=== PATIENT | male | born 1960 | race Caucasian/White ===

== ENCOUNTER 2016-11-27 07:58 | Emergency (ER) | payer OTHER ==
--- NOTE | 2016-11-27 09:14 | EDM.PDOC ---
[id number] Complaint: RT SIDE WEAKNESS/DELUSIONAL Time Seen by Provider: 11/27/16 08:30 Source of Information: Reports: Patient, Family History Limitations: Reports: No Limitations - History of Present Illness INITIAL COMMENTS - FREE TEXT/NARRATIVE: 56-year-old male developed fairly sudden onset of right-sided weakness, discoordination and emotional irritability yesterday, as the day went on it seemed to improve. No headache, no visual complaints. This morning when he woke up it seemed that symptoms had worsened again so his convinced him to come in and be checked. He is having a slight hindrance with walking as he feels his right leg is heavy and he has to push it through. His also thinks he's trying hard her doctor talk this morning and may have a slight slurred speech but subtle. Onset: Sudden (Roughly 24 hours ago) Severity: Moderate Associated Symptoms: Reports: No Other Symptoms. Denies: Fever/Chills, Headaches - Related Data Allergies Allergy/AdvReac Type Severity Reaction Status Date / Time No Known Allergies Allergy Verified 08/05/14 01:13 Home Meds: Home Meds Lisinopril [Zestril] 10 mg PO DAILY 11/27/16 [History] Ranitidine HCl [Ranitidine] 150 mg PO BID 11/27/16 [History] metFORMIN [Glucophage] 500 mg PO BIDMEALS 11/27/16 [History] Past Medical History HEENT History: Reports: Other (See Below) Other HEENT History: deviated septum Cardiovascular History: Reports: Hypertension Genitourinary History: Reports: Renal Calculus Endocrine/Metabolic History: Reports: Diabetes, Type II Oncologic (Cancer) History: Reports: Basal Cell Carcinoma - Infectious Disease History Infectious Disease History: Reports: Chicken Pox, Measles, Mumps - Past Surgical History GI Surgical History: Reports: Appendectomy Male Surgical History: Reports: Lithotripsy (ESWL), Ureteral Stent Musculoskeletal Surgical History: Reports: Arthroscopic Knee, Shoulder Surgery, Other (See Below) Other Musculoskeletal Surgeries/Procedures:: ankle surgery Social & Family History - Tobacco Use Smoking Status *Q: Current Every Day Smoker Years of Tobacco use: 40 Packs/Tins Daily: 1 - Caffeine Use Caffeine Use: Reports: Coffee - Alcohol Use Days Per Week of Alcohol Use: 0 - Recreational Drug Use Recreational Drug Use: No ED ROS GENERAL - Review of Systems Review Of Systems: See Below Constitutional: Denies: Fever, Chills, Malaise HEENT: Denies: Vision Change Respiratory: Denies: Shortness of Breath Cardiovascular: Denies: Chest Pain, Palpitations GI/Abdominal: Denies: Nausea, Vomiting : Reports: No Symptoms Musculoskeletal: Reports: No Symptoms Skin: Reports: No Symptoms Neurological: Reports: Confusion, Trouble Speaking, Difficulty Walking, Weakness , Gait Disturbance. Denies: Headache ED EXAM, NEURO - Physical Exam Exam: See Below Exam Limited By: No Limitations General Appearance: Alert, No Apparent Distress Eye Exam: Bilateral Eye: EOMI, PERRL Neck: No: Carotid Bruit Respiratory/Chest: No Respiratory Distress, Lungs Clear Cardiovascular: Regular Rate, Rhythm GI/Abdominal: Soft, Non-Tender Neurological: Alert, Normal Mood/Affect, Difficulty Walking (Slight difficulty walking with right leg weakness), Other (Some very minimal but reproducible grasp strength weakness of the right hand and dorsiflexion strength of the right foot) Course - Vital Signs Last Recorded V/S: Last Vital Signs Temp 97.0 F 11/27/16 08:14 Pulse 83 11/27/16 10:11 Resp 15 11/27/16 08:14 BP 144/105 H 11/27/16 10:11 Pulse Ox 93 L 11/27/16 09:01 - Orders/Labs/Meds Orders: Active Orders 24 hr Category Date Time Status Head wo Cont [CT] Stat Exams 11/27/16 08:34 Taken Labs: Laboratory Tests 11/27/16 11/27/16 Range/Units 08:34 08:34 WBC 12.4 H (4.5-11.0) K/uL RBC 5.34 (4.30-5.90) M/uL Hgb 16.1 H (12.0-15.0) g/dL Hct 46.6 (40.0-54.0) % MCV 87 (80-98) fL MCH 30 (27-31) pg MCHC 35 (32-36) % Plt Count 235 (150-400) K/uL Neut % (Auto) 71 H (36-66) % Lymph % (Auto) 21 L (24-44) % [place] % (Auto) 7 H (2-6) % Eos % (Auto) 1 L (2-4) % Baso % (Auto) 1 (0-1) % Sodium 138 L (140-148) mmol/L Potassium 4.2 (3.6-5.2) mmol/L Chloride 103 (100-108) mmol/L Carbon Dioxide 29 (21-32) mmol/L Anion Gap 10.2 (5.0-14.0) mmol/L BUN 15 (7-18) mg/dL Creatinine 1.4 H (0.8-1.3) mg/dL Est Cr Clr Drug Dosing 71.47 mL/min Estimated GFR (MDRD) 52 L (>60) Glucose 171 H (74-106) mg/dL Calcium 8.7 (8.5-10.1) mg/dL Total Bilirubin 0.5 (0.2-1.0) mg/dL AST 29 (15-37) U/L ALT 55 (12-78) U/L Alkaline Phosphatase 87 (46-116) U/L Total Protein 7.2 (6.4-8.2) g/dL Albumin 3.5 (3.4-5.0) g/dL Globulin 3.7 H (2.3-3.5) g/dL Albumin/Globulin Ratio 1.0 L (1.2-2.2) Meds: Medications Discontinued Medications Generic Name Dose Route Start Last Admin Trade Name Leyla PRN Reason Stop Dose Admin Aspirin 324 mg 11/27/16 10:05 11/27/16 10:12 Aspirin PO 11/27/16 10:06 324 mg ONETIME ONE Administration - Re-Assessments/Exams Free Text/Narrative Re-Assessment/Exam: 11/27/16 10:05 Labs revealed a slightly elevated glucose, otherwise reassuring. CT the head was negative for acute findings. His symptoms didn't completely resolve, so consultation with neurology in [place] was obtained and it was recommended the patient be evaluated. He was given 4 baby aspirin chewables, and discharged to the care of his as he refused ambulance transfer. They're going to [place] directly to the [facility] emergency room for evaluation. Departure - Departure Time of Disposition: 10:18 Disposition: Home, Self-Care 01 Condition: Good Clinical Impression: Weakness of right side of body Cerebrovascular accident (CVA) Qualifiers: CVA mechanism: unspecified Qualified Code(s): I63.9 - Cerebral infarction, unspecified - Discharge Information Instructions: Stroke Prevention, Weakness Referrals: Wily Gomez MD [Primary Care Provider] - Forms: ED Department Discharge Care Plan Goals: Please go directly to [facility] in [place], they will admit you through the emergency room and you will get a neurology evaluation. - My Orders Last 24 Hours: My Active Orders 11/27/16 08:34 Head wo Cont [CT] Stat - Assessment/Plan Last 24 Hours: My Active Orders 11/27/16 08:34 Head wo Cont [CT] Stat
[2016-11-27] MEDS ORDERED: Aspirin 81 MG Tab.Chew PO ONE (10:05)
[2016-11-27 10:16] VITALS: BP 144/105
== END 2016-11-27 10:15 | disposition home or self-care (01) ==
LOC: JP.ED 07:58
DX: I63.9 Cerebral infarction, unspecified (principal); G81.91 Hemiplegia, unspecified affecting right dominant side; I10 Essential (primary) hypertension; E11.9 Type 2 diabetes mellitus without complications; F17.210 Nicotine dependence, cigarettes, uncomplicated; Z79.899 Other long term (current) drug therapy; Z79.84 Long term (current) use of oral hypoglycemic drugs; Z85.828 Personal history of other malignant neoplasm of skin; Z90.49 Acquired absence of other specified parts of digestive tract; Z98.890 Other specified postprocedural states
CPT/HCPCS: 36415; 70450; 80053; 85025; 99285; A9270

== ENCOUNTER 2017-02-27 05:30 | Inpatient (IN) | payer OTHER ==
[2017-02-27] MEDS ORDERED: Acetaminophen 500 MG Tab PO ONE ×2 (05:37→10:41)
[2017-02-27] MEDS ORDERED: Celecoxib 200 MG Cap PO ONE (05:37)
[2017-02-27] MEDS ORDERED: Gabapentin 300 MG Cap PO ONE (05:38)
[2017-02-27] MEDS ORDERED: Scopolamine 1.5 MG Transdermal Patch TOP ONE (05:39)
[2017-02-27] MEDS ORDERED: Dextrose 5%-Lactated Ringers 1,000 ML IV SCH ×2 (05:45→11:45)
[2017-02-27] MEDS ORDERED: cefOXitin 2 GM Vial ONE (06:52)
[2017-02-27] MEDS ORDERED: fentaNYL 250 MCG/5 ML SDV ONE (06:59)
[2017-02-27] MEDS ORDERED: Midazolam 1 MG/ML 2 ML SDV ONE (06:59)
[2017-02-27] MEDS ORDERED: Succinylcholine 200 MG/10 ML MDV ONE (07:00)
[2017-02-27] MEDS ORDERED: Ondansetron 4 MG/2 ML SDV ONE (07:00)
[2017-02-27] MEDS ORDERED: Rocuronium 50 MG/5 ML Vial ONE ×2 (07:00→08:21)
[2017-02-27] MEDS ORDERED: Neostigmine Methylsulfate 1 MG/ML 5 ML Syringe ONE (07:00)
[2017-02-27] MEDS ORDERED: Dexamethasone 4 MG/ML SDV ONE (07:00)
[2017-02-27] MEDS ORDERED: Propofol 200 MG/20 ML SDV ONE (07:00)
[2017-02-27] MEDS ORDERED: Glycopyrrolate 0.2 MG/ML 5 ML MDV ONE (07:00)
[2017-02-27] MEDS ORDERED: Lidocaine 0.4%/D5W 2 GM/500 ML BAG IV SCH (07:30)
[2017-02-27] MEDS ORDERED: cefOXitin 2 GM in Sodium Chloride 0.9% 50 ML IV ONE (07:30)
[2017-02-27] MEDS ORDERED: Ketamine 500 MG/5 ML MDV IV ONE (07:30)
[2017-02-27] MEDS ORDERED: Lidocaine 2% 100 MG/5 ML Syringe IVPUSH ONE (07:30)
[2017-02-27] MEDS ORDERED: Ropivacaine 60 ML, Dexamethasone 8 MG, EPINEPHrine 0.4 MG, Sodium Chloride 0.9% 17.6 ML NERVRT ONE ×4 (07:30)
[2017-02-27] MEDS ORDERED: ePHEDrine 50 MG/ML SDV ONE (07:56)
[2017-02-27] MEDS ORDERED: Labetalol 20 MG/4 ML Syringe IVPUSH ONE (09:46)
[2017-02-27] MEDS ORDERED: fentaNYL 100 MCG/2 ML SDV IVPUSH ONE (10:10)
[2017-02-27] MEDS ORDERED: hydrOXYzine HCl 100 MG/2 ML SDV IM PRN (11:17)
[2017-02-27] MEDS: Labetalol 20 MG/4 ML Syringe IVPUSH PRN ×2 (11:45→16:04)
[2017-02-27] MEDS: Lidocaine 0.4%/D5W 2 GM/500 ML BAG IV SCH (11:49)
[2017-02-27] MEDS ORDERED: Pantoprazole 40 MG Vial IVPUSH SCH (12:00)
[2017-02-27] MEDS ORDERED: Glucagon,Human Recombinant 1 MG Vial IM PRN (12:00)
[2017-02-27] MEDS ORDERED: diphenhydrAMINE 50 MG/ML SDV IVPUSH PRN (12:00)
[2017-02-27] MEDS ORDERED: Ondansetron 4 MG/2 ML SDV IVPUSH PRN (12:00)
[2017-02-27] MEDS ORDERED: 50% Dextrose in Water 50 ML Syringe IVPUSH PRN (12:00)
[2017-02-27] MEDS: cefOXitin 2 GM in Sodium Chloride 0.9% 50 ML IV SCH ×3 (12:08→23:23)
[2017-02-27] MEDS: Insulin Aspart 100 Units/ML 3 ML Pen SUBCUT PRN ×3 (12:09→21:14)
[2017-02-27] MEDS ORDERED: hydrOXYzine HCl 100 MG/2 ML SDV IM ONE (12:30)
[2017-02-27] MEDS ORDERED: Meperidine PF 100 MG/ML Syringe IM ONE (12:30)
[2017-02-27] MEDS: Acetaminophen Soln 650 MG/20.3 ML UD Cup PO SCH ×2 (13:58→20:15)
[2017-02-27] MEDS: Gabapentin 250 MG/5 ML Solution ML 470 ML Bottle PO SCH ×2 (13:58→20:23)
[2017-02-27] MEDS ORDERED: MVI, Adult with Vitamin K 10 ML, Thiamine 200 MG, Chromium/Copper/Mang/Selen/Zn 1 ML in... IV SCH ×4 (16:00)
[2017-02-27] MEDS: Heparin Sodium 5,000 Units/ML Vial SUBCUT SCH (16:12)
[2017-02-28] MEDS: Heparin Sodium 5,000 Units/ML Vial SUBCUT SCH ×3 (00:23→15:31)
[2017-02-28] MEDS: Lidocaine 0.4%/D5W 2 GM/500 ML BAG IV SCH (01:42)
[2017-02-28] MEDS: Acetaminophen Soln 650 MG/20.3 ML UD Cup PO SCH ×4 (01:43→22:13)
[2017-02-28] MEDS ORDERED: Iohexol 647 MG/ML 50 ML SDV PO STA (04:10)
[2017-02-28] MEDS: Insulin Aspart 100 Units/ML 3 ML Pen SUBCUT PRN (05:25)
[2017-02-28] MEDS: cefOXitin 2 GM in Sodium Chloride 0.9% 50 ML IV SCH (05:27)
[2017-02-28] MEDS: Celecoxib 200 MG Cap PO SCH (09:24)
[2017-02-28] MEDS: Aspirin 325 MG Tab.EC PO SCH (09:27)
[2017-02-28] MEDS: Lactated Ringers 1,000 ML IV SCH (09:31)
[2017-02-28] MEDS: Gabapentin 250 MG/5 ML Solution ML 470 ML Bottle PO SCH (09:44)
[2017-02-28] MEDS: SCOPOLAMINE PATCH CHECK TOP SCH (09:45)
[2017-02-28] MEDS: traMADol 50 MG Tab PO SCH ×3 (10:59→22:13)
[2017-02-28] MEDS: Lansoprazole 30 MG Orally Disintegrating Tab.CR PO SCH (11:26)
[2017-02-28] MEDS: metFORMIN 500 MG Tab PO SCH ×2 (12:31→17:23)
[2017-02-28] MEDS ORDERED: Insulin Aspart 100 Units/ML 3 ML Pen SUBCUT ONE (12:45)
[2017-02-28] MEDS ORDERED: MVI, Adult with Vitamin K 10 ML, Thiamine 200 MG, Chromium/Copper/Mang/Selen/Zn 1 ML in... IV SCH ×4 (16:00)
[2017-03-01] MEDS: Heparin Sodium 5,000 Units/ML Vial SUBCUT SCH ×4 (01:26→23:45)
[2017-03-01] MEDS: Acetaminophen Soln 650 MG/20.3 ML UD Cup PO SCH ×4 (01:26→20:07)
[2017-03-01] MEDS: Lactated Ringers 1,000 ML IV SCH (01:26)
[2017-03-01] MEDS: traMADol 50 MG Tab PO SCH ×4 (05:06→23:45)
[2017-03-01] MEDS: Metoclopramide 10 MG/2 ML SDV IVPUSH PRN ×3 (07:13→20:08)
[2017-03-01] MEDS ORDERED: Ondansetron 4 MG Tab.DIS PO PRN (07:49)
[2017-03-01] MEDS: Celecoxib 200 MG Cap PO SCH (08:25)
--- NOTE | 2017-03-01 08:43 | CR ---
UGI wo KUB HISTORY: eval RNY GB FINDINGS: After administration of oral contrast, upright views were obtained. Post operative changes gastric bypass. Surgical drains in place. No evidence for leak. Contrast passes freely into proximal small bowel loops. IMPRESSION: No evidence for leak or obstruction.
--- NOTE | 2017-03-01 08:50 | PN ---
DATE OF SERVICE: 03/01/2017 SUBJECTIVE: Tony is postop day 2. Blood sugars have been 151 and 170. He is on the metformin. He did have his upper GI this morning and it was negative. He did have an increased amount of nausea. Vital signs otherwise have been stable. Oral intake was 1810. REVIEW OF SYSTEMS: Remainder of review of systems is negative for any pertinent positives and negatives. OBJECTIVE: GENERAL: Tony Mclaughlin is a 57-year-old male. VITAL SIGNS: TPR is 98.1, 110, 20, blood pressure 155/95. HEENT: Negative. NECK: Supple. HEART: Regular rate and rhythm. LUNGS: Clear. ABDOMEN: Dressings dry and intact. Abdominal binder is on. EXTREMITIES: Without peripheral edema. ASSESSMENT: Laparoscopic Robyn-en-Y gastric bypass surgery, liver biopsy, repair of diaphragmatic hernia, excision of mediastinal lipoma and peritoneal nodule for morbid obesity, hepatomegaly, diaphragmatic hernia, mediastinal lipoma, and peritoneal nodule. Date of surgery is 02/27/2017, Say Whitehead M.D. PLAN: 1. Three med cups per hour, record at bedside. 2. Dressing off. 3. May shower. 4. Zofran ODT 4 mg p.o. q.4 hours p.r.n. nausea. 5. Convert IV to saline lock if oral intake adequate. 6. DC metformin. 7. Good pulmonary toilet. 8. We will evaluate p.r.n. or in a.m. Qing Hale PA-C /[id number]
[2017-03-01] MEDS ORDERED: Cyanocobalamin (Vitamin B12) 1,000 MCG/ML SDV IM ONE (09:00)
[2017-03-01] MEDS: SCOPOLAMINE PATCH CHECK TOP SCH (09:47)
[2017-03-01] MEDS: Aspirin 325 MG Tab.EC PO SCH (09:47)
[2017-03-01] MEDS: Lansoprazole 30 MG Orally Disintegrating Tab.CR PO SCH (11:52)
--- NOTE | 2017-03-01 16:17 | OR ---
DATE OF PROCEDURE: 02/27/2017 PREOPERATIVE DIAGNOSIS: Morbid obesity. POSTOPERATIVE DIAGNOSES: 1. Morbid obesity. 2. Marked hepatomegaly. 3. Paraesophageal diaphragmatic hernia associated with mediastinal lipoma. 4. Peritoneal nodule on anterior abdominal wall. OPERATIVE PROCEDURES: 1. Laparoscopic Robyn-en-Y gastric bypass with long-limb gastroenterostomy (65224). 2. Urban-Cut needle liver biopsy (03567). 3. Repair of paraesophageal diaphragmatic hernia (19880). 4. Excision of mediastinal lipoma (37817). 5. Excision of peritoneal nodule on anterior abdominal wall (79810). ANESTHESIA: General. MANUFACTURING SPECIALIST: BETTY Daley. INDICATIONS FOR PROCEDURE: This is a 57-year-old male presenting with longstanding morbid obesity and increasingly significant comorbidities. After preoperative evaluation and discussion, he wished to proceed with a gastric bypass procedure. Potential risks of the procedure including bleeding, infection, leaks from various GI tract closures, problems with bowel obstruction over time, as well as the possibility of cardiopulmonary, septic, or hemorrhagic complications leading to were all discussed, and the patient wishes to proceed. DETAILS OF PROCEDURE: The patient was taken to the operating room and placed in a supine position. After general endotracheal anesthesia was induced, he was placed in a lithotomy position. Using ultrasound surveillance, bilateral transversus abdominis plane blocks were placed in the subcostal location using the standard solution. Following this, the abdomen was prepped and draped. 15 cm inferior and 5 cm left of xiphoid process, transverse incision was made and the peritoneal cavity entered under direct vision with an Optiview trocar and inflated to 15 mmHg pressure of CO2. Laparoscope was then reinserted. No underlying trocar insertion site injuries were seen. Following this, 5 additional trocars were placed across the upper and midabdomen and general exploration was undertaken. The patient was noted to have marked hepatomegaly with the liver being roughly 2 to 3 times normal, grossly fatty infiltrated. A Urban-Cut needle biopsy was obtained from left lobe of the liver. Minimal bleeding from the biopsy site was controlled with electrocautery. Additionally, there was a small white nodule on the anterior abdominal wall just to the left of the falciform ligament. This was excised and sent as a separate specimen for pathologic evaluation. There were no other similar nodules noted within the abdomen. At this point, the omentum was divided in the midline up to the level of the transverse colon. This allowed identification of the small bowel to the ligament of Treitz. Small bowel was then traced out 200 cm distal to that point, where it was divided transversely with a GLORIA stapler. Small bowel was then traced out an additional 200 cm, where the side-to- side enteroenterostomy was accomplished with an internal firing of the Endo-GLORIA 60-mm stapler. Common opening was then closed transversely with the same stapler, angles anastomosed, and mesenteric defect was approximated with some 0 Ethibond stitch along with 4 mL of fibrin sealant. The divided end of the Robyn limb was then from the mesentery for a few centimeters, which allowed an antecolic position of the Robyn limb up to the level of the gastroesophageal junction without tension. The liver was retracted anteriorly. The patient was noted to have a moderate-sized paraesophageal diaphragmatic hernia. This was reduced and the peritoneum overlying divided and reflected downward. During the course of the dissection, mediastinal lipoma was encountered, and this was excised in 2 separate pieces. An anterior repair of the diaphragmatic hernia was then accomplished with a series of 0 Ethibond sutures reinforced with PTFE pledgets. The gastrointestinal balloon catheter was then inflated to 15 mL and pulled up snugly against the EG junction, gastric wall apex balloon was then marked with electrocautery. Balloon catheter was deflated and pulled up in the esophagus. The lesser omental tissue adjacent to the gastric cardia was then incised allowing dissection behind the stomach at that level. The pouch formation was initiated with a transverse firing of the GLORIA stapler at the level of the cauterized sherie in the gastric cardia. We then continued up and through the angle of His with some additional GLORIA stapler firings. Upon completion of the pouch, both staple lines were noted to be intact. The anvil of a 25-mm EEA stapler was then attached to [place] sump type tube. The latter was brought down through the mouth and taken out through a small opening in the gastric pouch, and the anvil likewise was pulled down to within the gastric pouch. The divided end of the Robyn limb was then opened and the main body of the EEA stapler passed several centimeters in the lumen of the small bowel, brought up the anvil and united with it, thus creating the gastrojejunostomy. Upon removal of the stapler, double donuts of mucosa were noted within it. Small bowel was closed off with a vascular staple line. Gastrojejunostomy was reinforced with some 3-0 Vicryl seromuscular stitch along with some fibrin sealant. Leak test was accomplished with injection of 120 mL of air in the gastric pouch while it submerged in a cefoxitin-containing saline solution. No problems were noted. One Hermann- Bush drain was then placed to the left lateral trocar site and placed up adjacent to the gastrojejunostomy and from there into the splenic fossa. The trocars were then sequentially removed. The peritoneal cavity was deflated. Incision was closed with some 4-0 Vicryl skin stitch, which was also used to fix the drain. The patient was taken to the recovery room in a satisfactory condition. Physician assistant manager of operations, Qing Hale, played an essential role in assisting in this case, helping to retract structures as needed, position the patient as well as suturing and cutting sutures when indicated. Her presence improved the patient safety and decreased the operative time. Say Whitehead MD /[id number]
[2017-03-02] MEDS: Acetaminophen Soln 650 MG/20.3 ML UD Cup PO SCH ×2 (02:50→07:41)
[2017-03-02] MEDS: traMADol 50 MG Tab PO SCH ×3 (02:54→07:40)
[2017-03-02 07:32] VITALS: BP 138/81
[2017-03-02] MEDS: Celecoxib 200 MG Cap PO SCH (07:41)
--- NOTE | 2017-03-02 08:44 | PN ---
DATE OF SERVICE: 02/28/2017 The patient has been afebrile with stable vital signs. When he did sit up, trying to get the upper GI, he did develop orthostatic hypotension. Otherwise, urine output is good, and there is no evidence of him being dry. Blood pressures are good when he is in a supine or semi-sitting position. We will work on getting him gradually up during the day. From the diabetes, he may have some autonomic dysfunction. Otherwise, we will try to get the upper GI a little bit later, but I think we can continue with the advancement of the diet and, otherwise, maximize activity and work with pulmonary toilet. His blood sugars are running in the mid 200s. I think, rather than start any medications in terms of controlling the diabetic issue, we will switch him to plain LR at 100 mL an hour, and I think we will see the blood sugars come down from that point fairly well. Say Whitehead MD /[id number]
--- NOTE | 2017-03-02 09:23 | DISCH ---
ADMISSION DIAGNOSES: Morbid obesity, BMI 38.9; obstructive sleep apnea; hypertension; type 2 diabetes; and history of cerebrovascular accident, radha. DISCHARGE DIAGNOSES: Laparoscopic Robyn-en-Y gastric bypass surgery with long limb gastroenterostomy, Urban-Cut needle liver biopsy, repair of paraesophageal diaphragmatic hernia, excision of mediastinal lipoma, and excision of peritoneal nodule on anterior abdominal wall for morbid obesity, marked hepatomegaly, paraesophageal diaphragmatic hernia associated with mediastinal lipoma, peritoneal nodule on anterior abdominal wall. Date of surgery, 02/27/2017, Say Whitehead MD. HISTORY: Nilton Mclaughlin is a 57-year-old male with longstanding history of morbid obesity and increasing comorbidities. After preoperative evaluation and discussion of the possible risks and possible complications, he wished to proceed with surgical procedure. HOSPITAL COURSE: Nilton had his surgery on 02/27/2017. He had no operative complications. On postop day #1, he was unable to have his upper GI. He was not feeling well. He was started on a step 1 gastric bypass diet, progressed to step-2 gastric bypass diet without cereal. On postop day #2, he did have his upper GI and it was normal. Blood sugars were regulated and monitored. He will be going home with no blood sugar coverage. Over the past 24 hours, his blood sugars were 143, 168, 141, and 147. Vital signs have been stable. He has been afebrile. Activity has been good with encouragement. Oral intake adequate between 950 and 1400. He did receive dietary instructions. He is able to be discharged to home on postop day #3. PHYSICAL EXAMINATION: GENERAL: Tony Mclaughlin is a 57-year-old male, alert, oriented. VITAL SIGNS: TPR 98.5, 107, 16, blood pressure 138/81. HEENT: Negative. NECK: Supple. HEART: Regular rate and rhythm. LUNGS: Clear. ABDOMEN: 4x4 over SHAR drain site. Sutures look good. Abdominal binder is on. EXTREMITIES: Without peripheral edema. DISPOSITION: Discharged to home. CONDITION: Stable and improving. DISCHARGE MEDICATIONS: Home medications: Tylenol 650 mg p.o. q.6 hours, liquid 1200 mL; Zofran ODT 4 mg p.o. q.4 hours p.r.n. nausea; tramadol 100 mg q.6 hours p.r.n. pain. He is to resume his home medications; aspirin 325 mg daily, lisinopril 20 mg oral daily, ranitidine 150 mg twice a day, Lipitor 40 mg at bedtime. FOLLOWUP: With Qing Hale PA-C, 03/10/2017 at 11:00 a.m. DIET AFTER DISCHARGE: Step-2 gastric bypass diet with no cereal. Drink 8 to 10 glasses of water a day. ACTIVITY AFTER DISCHARGE: No lifting greater than 10 pounds for 2 weeks[address] Driving, do not drive for 1 week or while on pain medication. Shower/bathing, may shower. Notify provider if any fever, nausea, or vomiting. Keep site clean and dry. Special instruction, use incentive spirometer 10 times every hour while awake. Check blood sugars in the morning fasting and at bedtime, bring results to clinic appointment.
== END 2017-03-02 09:45 | disposition home or self-care (01) | DRG 621 ==
LOC: JP.SDS 05:30 → JP.MS 05:30 → JP.2SS 07:40 → EDSTATUS 13:30
PROVIDERS: ADMIT Surgery; ATTEND Surgery
PROC: 0D164ZA Bypass Stomach to Jejunum, Percutaneous Endoscopic Approach (ICD-10-PCS; principal; 2017-02-27)
PROC: 0DBW4ZZ Excision of Peritoneum, Percutaneous Endoscopic Approach (ICD-10-PCS; 2017-02-27)
PROC: 0FB24ZX Excision of Left Lobe Liver, Percutaneous Endoscopic Approach, Diagnostic (ICD-10-PCS; 2017-02-27)
PROC: 0BQT4ZZ Repair Diaphragm, Percutaneous Endoscopic Approach (ICD-10-PCS; 2017-02-27)
PROC: 3E0T3BZ Introduction of Anesthetic Agent into Peripheral Nerves and Plexi, Percutaneous Approach (ICD-10-PCS; 2017-02-27)
PROC: 0WBC4ZX Excision of Mediastinum, Percutaneous Endoscopic Approach, Diagnostic (ICD-10-PCS; 2017-02-27)
DX: E66.01 Morbid (severe) obesity due to excess calories (principal); Z68.39 Body mass index [BMI] 39.0-39.9, adult; R16.0 Hepatomegaly, not elsewhere classified; K76.0 Fatty (change of) liver, not elsewhere classified; K44.9 Diaphragmatic hernia without obstruction or gangrene; D17.4 Benign lipomatous neoplasm of intrathoracic organs; I10 Essential (primary) hypertension; E11.9 Type 2 diabetes mellitus without complications; Z86.73 Personal history of transient ischemic attack (TIA), and cerebral infarction without residual deficits; E78.5 Hyperlipidemia, unspecified; G47.33 Obstructive sleep apnea (adult) (pediatric); Z87.891 Personal history of nicotine dependence; K66.8 Other specified disorders of peritoneum; Z79.84 Long term (current) use of oral hypoglycemic drugs; Z79.82 Long term (current) use of aspirin
CPT/HCPCS: 36415; 74240; 74240-26; 82962; 83036; 86850; 86900; 86901; 88304; 88305; 88307; 88313; A9270-GY; C9113; J0171; J0330; J0694; J1100; J1644; J2001; J2175; J2250; J2405; J2704; J2710; J2765; J2795; J3010; J3410; J3411; J3420; J7030; J7040; J7042; J7050; J7120; Q9967

== ENCOUNTER 2017-09-05 20:08 | Inpatient (IN) | payer OTHER ==
[2017-09-05] MEDS ORDERED: Sodium Chloride 0.9% 1,000 ML IV SCH (20:45)
[2017-09-05] MEDS ORDERED: fentaNYL 100 MCG/2 ML SDV IVPUSH PRN ×2 (21:05→22:49)
[2017-09-05] MEDS ORDERED: Iopamidol 612 MG/ML 100 ML Bottle IV SCH (22:00)
[2017-09-05] MEDS ORDERED: Sodium Chloride 0.9% 80 ML IV SCH (22:00)
--- NOTE | 2017-09-05 22:16 | EDM.PDOC ---
ED HPI GENERAL MEDICAL PROBLEM - General Chief Complaint: Abdominal Pain Stated Complaint: SEVERE ABD PAIN Time Seen by Provider: 09/05/17 20:30 Source of Information: Reports: Patient, Family History Limitations: Reports: No Limitations - History of Present Illness INITIAL COMMENTS - FREE TEXT/NARRATIVE: 57-year-old male, status post Robyn-en-Y, has been having right upper quadrant pain especially after eating for the last week and a half. It's becoming more persistent and intense. Bowels are moving, no fevers or chills. A workup in the emergency room in another state was negative, a CT was pending but they had to leave. He was seen in the clinic a few days ago in a gallbladder ultrasound was "normal". He has an appointment with Dr. Whitehead tomorrow but the pain was too bothersome tonight so he came into the emergency room. Onset: Gradual (Over the past 2 weeks) Location: Reports: Abdomen Quality: Reports: Ache, Stabbing Severity: Moderate Worsens with: Reports: Eating Associated Symptoms: Denies: Fever/Chills, Nausea/Vomiting, Shortness of Breath Abdominal Pain Score (Numeric/FACES): 4 - Related Data Allergies Allergy/AdvReac Type Severity Reaction Status Date / Time No Known Allergies Allergy Verified 09/05/17 20:50 Home Meds: Home Meds Lisinopril [Zestril] 20 mg PO DAILY 11/27/16 [History] Past Medical History HEENT History: Reports: Other (See Below) Other HEENT History: deviated septum Cardiovascular History: Reports: High Cholesterol, Hypertension Respiratory History: Reports: Sleep Apnea Gastrointestinal History: Reports: None Genitourinary History: Reports: Renal Calculus Musculoskeletal History: Reports: Arthritis Neurological History: Reports: TIA Other Neuro History: 11/2016 Endocrine/Metabolic History: Reports: Diabetes, Type II, Obesity/BMI 30+ Hematologic History: Reports: Iron Deficiency Oncologic (Cancer) History: Reports: Basal Cell Carcinoma - Infectious Disease History Infectious Disease History: Reports: Chicken Pox, Measles, Mumps, Shingles - Past Surgical History Head Surgeries/Procedures: Reports: None HEENT Surgical History: Reports: Eye Surgery Cardiovascular Surgical History: Reports: None Respiratory Surgical History: Reports: None GI Surgical History: Reports: Appendectomy, Bariatric Procedure, EGD Male Surgical History: Reports: Lithotripsy (ES[facility]), Ureteral Stent Endocrine Surgical History: Reports: None Neurological Surgical History: Reports: None Musculoskeletal Surgical History: Reports: Arthroscopic Knee, Shoulder Surgery, Other (See Below) Other Musculoskeletal Surgeries/Procedures:: ankle surgery Oncologic Surgical History: Reports: None Dermatological Surgical History: Reports: Skin Biopsy Social & Family History - Family History Family Medical History: Noncontributory - Tobacco Use Smoking Status *Q: Current Every Day Smoker Years of Tobacco use: 41 Packs/Tins Daily: 1 - Caffeine Use Caffeine Use: Reports: Coffee - Recreational Drug Use Recreational Drug Use: No ED ROS GENERAL - Review of Systems Review Of Systems: See Below Constitutional: Denies: Fever, Chills Respiratory: Denies: Shortness of Breath Cardiovascular: Denies: Chest Pain GI/Abdominal: Reports: Abdominal Pain. Denies: Constipation, Nausea, Vomiting : Reports: No Symptoms Skin: Reports: No Symptoms Neurological: Reports: No Symptoms ED EXAM, GI/ABD - Physical Exam Exam: See Below Exam Limited By: No Limitations General Appearance: Alert, Moderate Distress (Looks fairly uncomfortable) Eyes: Bilateral: Normal Appearance (No jaundice) Respiratory/Chest: No Respiratory Distress, Lungs Clear Cardiovascular: Regular Rate, Rhythm GI/Abdominal Exam: Soft, Rebound (Very tender to palpation across the upper abdomen, especially on the right with guarding and rebound present) Extremities: Normal Inspection Neurological: Alert, Oriented Skin Exam: Warm, Dry Course - Vital Signs Last Recorded V/S: Last Vital Signs Temp 97.9 F 09/06/17 00:39 Pulse 64 09/06/17 00:39 Resp 18 09/06/17 00:39 BP 138/89 09/06/17 00:39 Pulse Ox 93 L 09/06/17 01:26 - Orders/Labs/Meds Orders: Active Orders 24 hr Category Date Time Status Abdomen Pelvis w Cont [CT] Stat Exams 09/05/17 21:46 Taken Iopamidol [Isovue-300 (61%)] Med 09/05/17 22:00 Active 100 ml IV . DIRECTED Sodium Chloride 0.9% [Normal Saline] 1,000 ml Med 09/05/17 20:45 Active IV ASDIRECTED Sodium Chloride 0.9% [Normal Saline] 80 ml Med 09/05/17 22:00 Active IV ASDIRECTED fentaNYL [Sublimaze] Med 09/05/17 22:49 Active 50 mcg IVPUSH Q6H PRN Medication Orders Fentanyl (Sublimaze) 50 mcg IVPUSH Q6H PRN PRN Reason: Pain (severe 7-10) Last Admin: 09/05/17 23:02 Dose: 50 mcg Fentanyl Citrate (Fentanyl In Ns 20 Mcg/Ml 30 Ml Air Crew Supervisor) 0 mcg IV ASDIRECTED PRN; Protocol PRN Reason: Pain Last Admin: 09/06/17 01:14 Dose: 600 mcg Sodium Chloride (Normal Saline) 1,000 mls @ 250 mls/hr IV ASDIRECTED EUGENIA Last Admin: 09/05/17 20:49 Dose: 250 mls/hr Sodium Chloride (Normal Saline) 80 mls @ 3 mls/sec IV ASDIRECTED [facility] Last Admin: 09/05/17 22:10 Dose: 3 mls/sec Dextrose/Lactated Ringer's (Dextrose 5%-Lactated Ringers) 1,000 mls @ 125 mls/ hr IV Q8H [facility] Last Admin: 09/06/17 00:54 Dose: 125 mls/hr Iopamidol (Isovue-300 (61%)) 100 ml IV . DIRECTED [facility] Last Admin: 09/05/17 22:11 Dose: 100 ml Naloxone HCl (Narcan) 0.1 mg IV ASDIRECTED PRN PRN Reason: Dyspnea Ondansetron HCl (Zofran) 4 mg IVPUSH Q3H PRN PRN Reason: Nausea/Vomiting Labs: Laboratory Tests 09/05/17 09/05/17 09/05/17 Range/Units 21:18 21:18 21:18 WBC 9.7 (4.5-11.0) K/uL RBC 4.45 (4.30-5.90) M/uL Hgb 13.2 D (12.0-15.0) g/dL Hct 39.4 L (40.0-54.0) % MCV 89 (80-98) fL MCH 30 (27-31) pg MCHC 34 (32-36) % Plt Count 204 (150-400) K/uL Neut % (Auto) 69 H (36-66) % Lymph % (Auto) 21 L (24-44) % Jerauld % (Auto) 8 H (2-6) % Eos % (Auto) 2 (2-4) % Baso % (Auto) 1 (0-1) % Sodium 144 (140-148) mmol/L Potassium 3.6 (3.6-5.2) mmol/L Chloride 106 (100-108) mmol/L Carbon Dioxide 29 (21-32) mmol/L Anion Gap 9.3 (5.0-14.0) mmol/L BUN 14 (7-18) mg/dL Creatinine 1.1 (0.8-1.3) mg/dL Est Cr Clr Drug Dosing 80.34 mL/min Estimated GFR (MDRD) > 60 (>60) Glucose 112 H (74-106) mg/dL Lactic Acid 1.1 (0.4-2.0) mmol/L Calcium 8.5 (8.5-10.1) mg/dL Total Bilirubin 0.4 (0.2-1.0) mg/dL AST 30 (15-37) U/L ALT 36 (12-78) U/L Alkaline Phosphatase 85 (46-116) U/L Total Protein 6.4 (6.4-8.2) g/dL Albumin 3.4 (3.4-5.0) g/dL Globulin 3.0 (2.3-3.5) g/dL Albumin/Globulin Ratio 1.1 L (1.2-2.2) Amylase 46 (25-115) U/L Lipase 128 (73-393) U/L Meds: Medications Generic Name Dose Route Start Last Admin Trade Name Freq PRN Reason Stop Dose Admin Fentanyl 50 mcg 09/05/17 22:49 09/05/17 23:02 Sublimaze IVPUSH 50 mcg Q6H PRN Administration Pain (severe 7-10) Fentanyl Citrate 0 mcg 09/06/17 01:00 09/06/17 01:14 Fentanyl In Ns 20 Mcg/Ml 30 Ml Air Crew Supervisor IV 600 mcg ASDIRECTED PRN Administration Pain Protocol Sodium Chloride 1,000 mls @ 250 mls/hr 09/05/17 20:45 09/05/17 20:49 Normal Saline IV 250 mls/hr ASDIRECTED EUGENIA Administration Sodium Chloride 80 mls @ 3 mls/sec 09/05/17 22:00 09/05/17 22:10 Normal Saline IV 3 mls/sec ASDIRECTED EUGENIA Administration Dextrose/Lactated Ringer's 1,000 mls @ 125 mls/hr 09/06/17 01:00 09/06/17 00: 54 Dextrose 5%-Lactated Ringers IV 125 mls/hr Q8H EUGENIA Administration Iopamidol 100 ml 09/05/17 22:00 09/05/17 22:11 Isovue-300 (61%) IV 100 ml . DIRECTED EUGENIA Administration Naloxone HCl 0.1 mg 09/06/17 01:00 Narcan IV ASDIRECTED PRN Dyspnea Ondansetron HCl 4 mg 09/06/17 00:33 Zofran IVPUSH Q3H PRN Nausea/Vomiting Discontinued Medications Generic Name Dose Route Start Last Admin Trade Name Freq PRN Reason Stop Dose Admin Fentanyl 50 mcg 09/05/17 21:05 09/05/17 21:19 Sublimaze IVPUSH 50 mcg Q6H PRN Administration Pain (severe 7-10) - Re-Assessments/Exams Free Text/Narrative Re-Assessment/Exam: 09/05/17 22:15 CBC, CMP, amylase and lipase were obtained and were all reassuring. CT the abdomen and pelvis was then obtained with IV contrast. Patient was given 50 g of fentanyl prior to lab draw. 09/05/17 23:25 CT scan confirmed a small bowel obstruction. His condition was discussed with Dr. Whitehead who accepted his admission. He'll be placed on fluid maintenance, fentanyl ASSEMBLING MOTOR BUILDER and will have a surgical evaluation in the morning. Departure - Departure Time of Disposition: 23:59 Disposition: Admitted As Inpatient 65 Condition: Fair Clinical Impression: Small bowel obstruction Abdominal pain Qualifiers: Abdominal location: generalized Qualified Code(s): R10.84 - Generalized abdominal pain - Discharge Information - My Orders Last 24 Hours: My Active Orders 09/05/17 21:46 Abdomen Pelvis w Cont [CT] Stat 09/05/17 22:00 Iopamidol [Isovue-300 (61%)] 100 ml IV . DIRECTED Sodium Chloride 0.9% [Normal Saline] 80 ml IV ASDIRECTED 09/05/17 22:49 fentaNYL [Sublimaze] 50 mcg IVPUSH Q6H PRN - Assessment/Plan Last 24 Hours: My Active Orders 09/05/17 21:46 Abdomen Pelvis w Cont [CT] Stat 09/05/17 22:00 Iopamidol [Isovue-300 (61%)] 100 ml IV . DIRECTED Sodium Chloride 0.9% [Normal Saline] 80 ml IV ASDIRECTED 09/05/17 22:49 fentaNYL [Sublimaze] 50 mcg IVPUSH Q6H PRN
[2017-09-06] MEDS ORDERED: Ondansetron 4 MG/2 ML SDV IVPUSH PRN (00:33)
[2017-09-06] MEDS: Dextrose 5%-Lactated Ringers 1,000 ML IV SCH ×2 (00:54→09:00)
[2017-09-06] MEDS ORDERED: fentaNYL/Normal Saline 600 MCG/30 ML PCA Vial IV PRN (01:00)
[2017-09-06] MEDS ORDERED: Naloxone 0.4 MG/ML SDV IV PRN (01:00)
[2017-09-06] MEDS ORDERED: Glycopyrrolate 0.2 MG/ML 5 ML MDV ONE (10:30)
[2017-09-06] MEDS ORDERED: Propofol 200 MG/20 ML SDV ONE ×2 (10:30→15:20)
[2017-09-06] MEDS ORDERED: Ondansetron 4 MG/2 ML SDV ONE (10:30)
[2017-09-06] MEDS ORDERED: Neostigmine Methylsulfate 1 MG/ML 5 ML Syringe ONE (10:30)
[2017-09-06] MEDS ORDERED: Rocuronium 50 MG/5 ML Vial ONE (10:30)
[2017-09-06] MEDS ORDERED: Succinylcholine 200 MG/10 ML MDV ONE (10:30)
[2017-09-06] MEDS ORDERED: Dexamethasone 4 MG/ML SDV ONE (10:30)
--- NOTE | 2017-09-06 11:35 | PN ---
DATE OF SERVICE: 09/06/2017 SUBJECTIVE: Tony came in through the emergency room. He has a partial small bowel obstruction. He is n.p.o. Vital signs have been stable. REVIEW OF SYSTEMS: GI: Reports abdominal pain associated with nausea, vomiting, and bloating after eating. HEENT: Negative. NECK: Negative. CHEST: No chest pain or shortness of breath. LUNGS: No cough. : Negative. EXTREMITIES: Negative. NEURO: Negative for headache, dizziness, or loss of coordination. PSYCHIATRIC: Negative. Remainder of review of systems negative for any pertinent positives and negatives. OBJECTIVE: GENERAL: Tony Mclaughlin is a 57-year-old male, status post Robyn-en-Y gastric bypass surgery, 02/2017. VITAL SIGNS: TPR is 98.4, 69, 16, and blood pressure 129/76. HEENT: Negative. NECK: Supple. HEART: Regular rate and rhythm. LUNGS: Clear. ABDOMEN: Slight distention. Generalized tenderness. EXTREMITIES: Without peripheral edema. NEURO: Intact. SKIN: Without rash. PSYCHIATRIC: Mood and affect appropriate. ASSESSMENT: Partial small bowel obstruction. PLAN: Schedule, have consent signed for exploratory laparotomy for release of small bowel obstruction and possible bowel resection, general anesthesia, TAP block, lidocaine and ketamine per protocol, Monday09/06/2017 at 1400 hours, Say Whitehead MD. Cefoxitin 2 grams IV on-call to OR. Expected time of surgery 1400 hours. We will evaluate p.r.n. Orders to be written postoperatively. Qing Hale PA-C /[id number]
[2017-09-06] MEDS ORDERED: Bupivacaine 0.5%/EPINEPHrine 1:200,000 50 ML MDV ONE (13:20)
[2017-09-06] MEDS ORDERED: Meropenem 500 MG SDV ONE (13:20)
[2017-09-06] MEDS ORDERED: Lidocaine 0.4%/D5W 2 GM/500 ML BAG IV SCH (14:00)
[2017-09-06] MEDS ORDERED: cefOXitin 2 GM in Sodium Chloride 0.9% 50 ML IV ONE (14:00)
[2017-09-06] MEDS ORDERED: Ketamine 500 MG/5 ML MDV IV SCH (14:00)
[2017-09-06] MEDS ORDERED: Ropivacaine 48 ML, Dexamethasone 8 MG, EPINEPHrine 0.4 MG, Sodium Chloride 0.9% 29.6 ML NERVRT SCH ×4 (14:00)
[2017-09-06] MEDS ORDERED: Lidocaine 2% 100 MG/5 ML Syringe IVPUSH ONE (14:00)
[2017-09-06] MEDS ORDERED: Scopolamine 1.5 MG Transdermal Patch ONE (14:39)
[2017-09-06] MEDS ORDERED: Lactated Ringers 1,000 ML ONE (15:11)
[2017-09-06] MEDS ORDERED: hydrOXYzine HCl 100 MG/2 ML SDV IM ONE (15:48)
[2017-09-06] MEDS ORDERED: Labetalol 20 MG/4 ML Syringe IVPUSH PRN (17:00)
[2017-09-06] MEDS ORDERED: Metoclopramide 10 MG/2 ML SDV IVPUSH PRN (17:00)
[2017-09-06] MEDS ORDERED: Pantoprazole 40 MG Vial IVPUSH SCH (17:00)
[2017-09-06] MEDS ORDERED: diphenhydrAMINE 50 MG/ML SDV IVPUSH PRN (17:00)
[2017-09-06] MEDS ORDERED: hydrOXYzine HCl 100 MG/2 ML SDV IM PRN (17:00)
[2017-09-06] MEDS: Acetaminophen Soln 650 MG/20.3 ML UD Cup PO SCH (17:58)
[2017-09-06] MEDS ORDERED: MVI, Adult with Vitamin K 10 ML, Thiamine 100 MG, Chromium/Copper/Mang/Selen/Zn 1 ML in... IV SCH ×4 (18:00)
[2017-09-06] MEDS: Heparin Sodium 5,000 Units/ML Vial SUBCUT SCH (20:10)
[2017-09-06] MEDS: Gabapentin 250 MG/5 ML Solution ML 470 ML Bottle PO SCH (20:10)
[2017-09-06] MEDS: cefOXitin 2 GM in Sodium Chloride 0.9% 50 ML IV SCH (20:10)
[2017-09-07] MEDS: Dextrose 5%-Lactated Ringers 1,000 ML IV SCH ×2 (00:12→05:52)
[2017-09-07] MEDS: Acetaminophen Soln 650 MG/20.3 ML UD Cup PO SCH ×5 (00:12→23:19)
[2017-09-07] MEDS: cefOXitin 2 GM in Sodium Chloride 0.9% 50 ML IV SCH ×2 (01:20→07:44)
[2017-09-07] MEDS ORDERED: Iohexol 647 MG/ML 50 ML SDV PO STA (03:48)
[2017-09-07] MEDS: Heparin Sodium 5,000 Units/ML Vial SUBCUT SCH ×2 (07:40→21:05)
[2017-09-07] MEDS: Celecoxib 200 MG Cap PO SCH (07:40)
[2017-09-07] MEDS ORDERED: Dextrose 5%-Lactated Ringers 1,000 ML IV SCH ×2 (08:00→17:30)
[2017-09-07] MEDS: Gabapentin 250 MG/5 ML Solution ML 470 ML Bottle PO SCH ×3 (08:08→21:05)
[2017-09-07] MEDS: Lisinopril 20 MG Tab PO SCH (08:09)
[2017-09-07] MEDS ORDERED: Lisinopril 20 MG Tab PO SCH (09:00)
--- NOTE | 2017-09-07 09:01 | CR ---
Limited upper GI The patient is status post Robyn-en-Y gastric bypass. There is no extravasation of contrast. The charissa chantal pouch empties readily into a mildly dilated Robyn limb. Contrast passes distal to the jejunal jeju nal anastomosis. There is a small amount of free air underlying the left hemidiaphragm. Impression: 1. Status post Robyn-en-Y gastric bypass. There is mild dilatation of the Robyn limb. Free air underlyi ng the left hemidiaphragm most consistent with a recent postoperative finding.
[2017-09-07] MEDS: SCOPOLAMINE PATCH CHECK TOP SCH (09:29)
[2017-09-07] MEDS: Ondansetron 4 MG/2 ML SDV IVPUSH PRN (10:06)
--- NOTE | 2017-09-07 10:14 | PN ---
DATE OF SERVICE: 09/07/2017 SUBJECTIVE: Tony reports his pain is controlled. He is using a LOG GRADER. Upper GI was normal. He has no questions or concerns. OBJECTIVE: GENERAL: Tony Mclaughlin is a 57-year-old male. VITAL SIGNS: TPR is 97.9, 85, 16, blood pressure 159/100. HEENT: Negative. NECK: Supple. HEART: Regular rate and rhythm. LUNGS: Clear. ABDOMEN: Dressings dry and intact. Abdominal binder is on. EXTREMITIES: Without peripheral edema. ASSESSMENT: Exploratory laparotomy with small bowel resection, reduction of small bowel volvulus and repair of incisional hernia. Date of surgery 09/06/2017. PLAN: 1. Step 2 gastric bypass diet. 2. Decrease IV to 100 mL per hour. 3. Dressing off, may shower. 4. Good pulmonary toilet. 5. Restart home medication, lisinopril 20 mg p.o. daily. 6. We will evaluate p.r.n. or in a.m. Qing Hale PA-C /[id number] MTDD
[2017-09-07] MEDS ORDERED: Furosemide 20 MG/2 ML VIAL IVPUSH ONE (15:00)
[2017-09-07] MEDS ORDERED: Potassium Chloride 20 MEQ Tab.ER PO ONE (15:00)
[2017-09-07] MEDS: MVI, Adult with Vitamin K 10 ML, Thiamine 100 MG, Chromium/Copper/Mang/Selen/Zn 1 ML in... IV SCH ×8 (15:02→17:41)
[2017-09-07] MEDS: Pantoprazole 40 MG Delayed-Release Granules 1 Packet PO SCH (17:42)
[2017-09-07] MEDS: HYDROmorphone 2 MG Tab PO PRN ×2 (18:42→23:19)
[2017-09-08] MEDS: HYDROmorphone 2 MG Tab PO PRN ×4 (03:34→16:23)
[2017-09-08] MEDS: Acetaminophen Soln 650 MG/20.3 ML UD Cup PO SCH ×4 (05:57→23:33)
[2017-09-08] MEDS: Celecoxib 200 MG Cap PO SCH (08:05)
[2017-09-08] MEDS: Heparin Sodium 5,000 Units/ML Vial SUBCUT SCH ×2 (08:05→20:06)
[2017-09-08] MEDS: Lisinopril 20 MG Tab PO SCH (08:06)
[2017-09-08] MEDS: Gabapentin 250 MG/5 ML Solution ML 470 ML Bottle PO SCH ×2 (08:06→14:59)
[2017-09-08] MEDS: SCOPOLAMINE PATCH CHECK TOP SCH (08:06)
[2017-09-08] MEDS ORDERED: Magnesium Hydroxide 400 MG/5 ML Susp 30 ML Cup PO ONE (09:00)
[2017-09-08] MEDS ORDERED: Cyanocobalamin (Vitamin B12) 1,000 MCG/ML SDV IM ONE (09:00)
[2017-09-08] MEDS ORDERED: Bisacodyl 5 MG Tab PO ONE (10:00)
--- NOTE | 2017-09-08 14:02 | PN ---
DATE OF SERVICE: 09/08/2017 SUBJECTIVE: Tony reports he is feeling much better after starting on the oral Dilaudid. I am concerned about not having a bowel movement. He has been up ambulating, feeling so much better. Vital signs have been stable. REVIEW OF SYSTEMS: Remainder of review of systems negative for any pertinent positives or negatives. Oral intake yesterday was 1620 and urine output was 3075. OBJECTIVE: GENERAL: Tony Mclaughlin is a 57-year-old male. He is alert and orientated. VITAL SIGNS: TPR 97.7, 84, 16; and blood pressure 162/92. HEENT: Negative. NECK: Supple. HEART: Regular rate and rhythm. LUNGS: Clear. ABDOMEN: Aquacel dressing is on. Abdominal binder has been on. EXTREMITIES: Without peripheral edema. ASSESSMENT: Exploratory laparotomy with small bowel resection, reduction of small bowel volvulus, repair of incisional hernia. Date of surgery 09/06/2017. PLAN: 1. Milk of magnesia 30 mL followed by Dulcolax 2 tablets p.o. 1 hour. 2. Continue good pulmonary toilet. 3. We will evaluate p.r.n. or in a.m. Qing Hale PA-C /[id number]
[2017-09-08] MEDS: Pantoprazole 40 MG Delayed-Release Granules 1 Packet PO SCH (16:25)
[2017-09-08] MEDS: Ondansetron 4 MG Tab.DIS PO PRN (16:56)
[2017-09-08] MEDS ORDERED: Sodium Chloride 0.9% 10 ML Syringe FLUSH PRN (17:10)
[2017-09-08] MEDS ORDERED: LORazepam 2 MG/ML SDV IVPUSH PRN (17:16)
[2017-09-08] MEDS: Dextrose 5%-Lactated Ringers 1,000 ML IV SCH (17:50)
[2017-09-08] MEDS: HYDROmorphone 1 MG/ML Syringe IVPUSH PRN ×2 (17:59→23:20)
[2017-09-08] MEDS: Metoclopramide 10 MG/2 ML SDV IVPUSH SCH ×2 (18:02→23:17)
[2017-09-09] MEDS: Dextrose 5%-Lactated Ringers 1,000 ML IV SCH ×2 (03:25→16:20)
[2017-09-09] MEDS: Metoclopramide 10 MG/2 ML SDV IVPUSH SCH ×4 (04:32→23:49)
[2017-09-09] MEDS: HYDROmorphone 1 MG/ML Syringe IVPUSH PRN ×5 (04:37→22:53)
[2017-09-09] MEDS: Acetaminophen Soln 650 MG/20.3 ML UD Cup PO SCH ×4 (06:12→23:52)
[2017-09-09] MEDS: Lisinopril 20 MG Tab PO SCH (09:19)
[2017-09-09] MEDS: Heparin Sodium 5,000 Units/ML Vial SUBCUT SCH ×2 (09:19→19:43)
[2017-09-09] MEDS: Celecoxib 200 MG Cap PO SCH (09:20)
[2017-09-09] MEDS: Sodium Chloride 0.9% 10 ML Syringe IV PRN ×2 (09:23→12:16)
--- NOTE | 2017-09-09 09:43 | PN ---
DATE OF SERVICE: 09/09/2017 SUBJECTIVE: Nilton is postop day #2. He was feeling good until last evening. He felt a little bit bloated; had 2 small emesis. Diet was backed off to ice chips and sips of clear liquid. This morning, he feels less bloated. He said he has gas moving around inside his stomach, but he has not passed any yet. He has been diligent in ambulating. REVIEW OF SYSTEMS: Remainder of review of systems negative for any pertinent positives and negatives. OBJECTIVE: GENERAL: Nilton Mclaughlin is a 57-year-old male. VITAL SIGNS: TPR is 97.4, 92, 16. Blood pressure 150/94. HEENT: Negative. NECK: Supple. HEART: Regular rate and rhythm. LUNGS: Clear. ABDOMEN: Aquacel dressings dry and intact. Abdominal binder has been on. EXTREMITIES: Without peripheral edema. ASSESSMENT: 1. Exploratory laparotomy with small bowel resection, reduction of small bowel volvulus and repair of incisional hernia. Date of surgery, 09/06/2017. 2. Postoperative ileus. PLAN: 1. Dulcolax suppositories b.i.d. until bowel movement. 2. Senna Plus 2 b.i.d. 3. Abdominal flat and upright x-rays q.a.m. 0400 hours, series ordered. 4. We will evaluate p.r.n. or in a.m. Qing Hale PA-C /[id number]
[2017-09-09] MEDS: Bisacodyl 10 MG Supp RECTAL SCH ×2 (10:30→20:01)
[2017-09-09] MEDS: Pantoprazole 40 MG Delayed-Release Granules 1 Packet PO SCH (17:09)
[2017-09-09] MEDS: Ondansetron 4 MG/2 ML SDV IVPUSH PRN (22:51)
[2017-09-09] MEDS ORDERED: Morphine 2 MG/ML Syringe IVPUSH PRN (23:18)
[2017-09-09] MEDS ORDERED: hydrOXYzine HCl 100 MG/2 ML SDV IM STA (23:20)
[2017-09-10] MEDS: Dextrose 5%-Lactated Ringers 1,000 ML IV SCH (01:43)
[2017-09-10] MEDS: Acetaminophen Soln 650 MG/20.3 ML UD Cup PO SCH ×3 (05:26→17:30)
[2017-09-10] MEDS: Metoclopramide 10 MG/2 ML SDV IVPUSH SCH ×4 (05:36→22:30)
[2017-09-10] MEDS ORDERED: Cyclobenzaprine 10 MG Tab PO PRN (07:18)
[2017-09-10] MEDS ORDERED: Polyethylene Glycol 3350 Powder 119 GM Bottle PO ONE (08:00)
[2017-09-10] MEDS: Heparin Sodium 5,000 Units/ML Vial SUBCUT SCH ×2 (08:56→19:51)
[2017-09-10] MEDS: Celecoxib 200 MG Cap PO SCH (08:56)
[2017-09-10] MEDS: Bisacodyl 10 MG Supp RECTAL SCH ×2 (08:57→20:53)
[2017-09-10] MEDS: Lisinopril 20 MG Tab PO SCH (08:57)
--- NOTE | 2017-09-10 09:50 | PN ---
DATE OF SERVICE: 09/10/2017 SUBJECTIVE: Tnoy had a very small marble-type stool. He does have bowel sounds, feeling better. He gets dry heaves from the Dilaudid. He was changed to morphine, but he does not think he really needs it. Reports he is sensitive to narcotic medications. He does feel better and wants to be discharged as soon as he has a bowel movement. Mrs. Mclaughlin is here and not wanting him home until he does have a bowel movement. Vital signs have been stable with the exception of blood pressure, which is felt to be pain and anxiety related. He has been up ambulating frequently. REVIEW OF SYSTEMS: Remainder of review of systems negative for any pertinent positives and negatives. OBJECTIVE: GENERAL: Tony Mclaughlin is a 57-year-old male. VITAL SIGNS: TPR is 99.2, 87, 16, and blood pressure 163/92. HEENT: Negative. NECK: Supple. HEART: Regular rate and rhythm. LUNGS: Clear. ABDOMEN: Soft and nontender. Aquacel dressing is on and abdominal binder on. EXTREMITIES: Without peripheral edema. SCDs have been. ASSESSMENT: 1. Exploratory laparotomy with small bowel resection, reduction of small bowel volvulus and repair of incisional hernia. Date of surgery, 09/06/2017. 2. Postoperative ileus. PLAN: 1. Full liquid diet. 2. May have coffee. 3. Protein supplements per his choice, three times a day. 4. Discontinue Dilaudid and discontinue morphine. 5. MiraLAX 119 grams today. 6. Flexeril 10 mg q.6 hours p.r.n. pain. 7. Tramadol 50 mg p.o. q.4 hours p.r.n. 8. Continue Dulcolax suppositories. 9. We will evaluate p.r.n. or in a.m. Qing Hale PA-C /[id number]
[2017-09-10] MEDS: traMADol 50 MG Tab PO PRN ×3 (13:13→22:28)
[2017-09-10] MEDS ORDERED: Furosemide 20 MG Tab PO ONE (15:00)
[2017-09-10] MEDS: Pantoprazole 40 MG Delayed-Release Granules 1 Packet PO SCH (17:06)
[2017-09-10] MEDS ORDERED: Potassium Chloride 20 MEQ Tab.ER PO ONE (18:00)
[2017-09-10] MEDS ORDERED: Lisinopril 20 MG Tab PO ONE (19:00)
[2017-09-10] MEDS ORDERED: Lisinopril 10 MG Tab PO STA (19:34)
[2017-09-10] MEDS: ALPRAZolam 0.25 MG Tab PO PRN (20:53)
[2017-09-11] MEDS: Acetaminophen Soln 650 MG/20.3 ML UD Cup PO SCH ×4 (00:10→17:02)
[2017-09-11] MEDS: Metoclopramide 10 MG/2 ML SDV IVPUSH SCH ×4 (05:10→22:42)
[2017-09-11] MEDS: Celecoxib 200 MG Cap PO SCH (07:51)
--- NOTE | 2017-09-11 08:34 | PN ---
DATE OF SERVICE: 09/11/2017 SUBJECTIVE: Tony had bowel movements yesterday. He has been voiding okay. Blood pressure has been elevated. He did have his lisinopril increased to 40. Prior to this, has had Lasix, and there was no change in blood pressure. He did receive labetalol per protocol. Blood pressure has been ranging from 150 to 126 systolic and diastolic has ranged from 92 to 106. He did finish the MiraLAX, from yesterday morning, he finished it last night. Oral intake was 1480 and urine output was 1850. Pain has been controlled with tramadol. REVIEW OF SYSTEMS: Remainder of review of systems negative for any pertinent positives and negatives. OBJECTIVE: GENERAL: Tony Mclaughlin is a 57-year-old male. He is alert and orientated. States he feels pretty good. VITAL SIGNS: TPR is 96.3, 51, 16, and blood pressure 172/96, rechecked and it was 157/106. HEENT: Negative. NECK: Supple. HEART: Regular rate and rhythm. LUNGS: Clear. ABDOMEN: Negative. EXTREMITIES: Without peripheral edema. ASSESSMENT: 1. Uncontrolled hypertension. 2. Postoperative ileus. 3. Exploratory laparotomy with small bowel resection, reduction of small bowel volvulus, and repair of incisional hernia. Date of surgery, 09/06/2017. PLAN: 1. Consult hospitalist in regard to management of hypertension. 2. Erythromycin 125 mg t.i.d. p.o. 3. Continue bowel regimes. 4. Plan discharge in [facility] Qing Hale PA-C /[id number]
[2017-09-11] MEDS: Erythromycin Ethylsuccinate Susp 400 MG/5 ML 100 ML Bottle PO SCH ×2 (08:46→15:19)
[2017-09-11] MEDS: Heparin Sodium 5,000 Units/ML Vial SUBCUT SCH ×2 (08:46→19:29)
[2017-09-11] MEDS: Bisacodyl 10 MG Supp RECTAL SCH ×2 (08:46→20:26)
[2017-09-11] MEDS: Lisinopril 20 MG Tab PO SCH (08:47)
--- NOTE | 2017-09-11 09:24 | CR ---
Abdomen 2V AP Flat Upright INDICATION: post op ileus FINDINGS: Comparison 09/07/2017. Oral contrast has now progressed into the right side of the colon. No nspecific bowel gas pattern. Scattered gas within small bowel and large bowel. No definitive evidence for small bowel obstruction. The entire hemidiaphragms are not included on the study and free air ca nnot be excluded.
--- NOTE | 2017-09-11 09:25 | CR ---
Abdomen 2V AP Flat Upright INDICATION: Post op ileus FINDINGS: Comparison 09/09/2017. Persistent oral contrast in the right side of the colon. The right he midiaphragm is not completely included on the study and free air is not excluded. Moderate amount of gas in the colon. No definitive evidence for small bowel obstruction.
--- NOTE | 2017-09-11 09:35 | CR ---
Abdomen 2V AP Flat Upright INDICATION: Post op ileus FINDINGS: Comparison 09/10/2017. Oral contrast has progressed into the descending colon. Moderate amou nt of gas through the colon and rectum. No definitive evidence for small bowel obstruction or free ai r.
[2017-09-11] MEDS: Pantoprazole 40 MG Delayed-Release Granules 1 Packet PO SCH (17:01)
[2017-09-11] MEDS ORDERED: Potassium Chloride 20 MEQ Tab.ER PO ONE (18:00)
[2017-09-11] MEDS: traMADol 50 MG Tab PO PRN ×2 (18:41→22:41)
[2017-09-11] MEDS: ALPRAZolam 0.25 MG Tab PO PRN (19:28)
[2017-09-12] MEDS: Acetaminophen Soln 650 MG/20.3 ML UD Cup PO SCH ×2 (00:55→06:32)
[2017-09-12] MEDS: Erythromycin Ethylsuccinate Susp 400 MG/5 ML 100 ML Bottle PO SCH ×2 (00:57→08:56)
[2017-09-12] MEDS: traMADol 50 MG Tab PO PRN ×2 (03:50→07:38)
[2017-09-12] MEDS: Metoclopramide 10 MG/2 ML SDV IVPUSH SCH (05:30)
[2017-09-12] MEDS: Heparin Sodium 5,000 Units/ML Vial SUBCUT SCH (08:56)
[2017-09-12] MEDS: Celecoxib 200 MG Cap PO SCH (08:56)
[2017-09-12] MEDS: Bisacodyl 10 MG Supp RECTAL SCH (08:56)
[2017-09-12] MEDS: Lisinopril 20 MG Tab PO SCH (08:57)
[2017-09-12] MEDS ORDERED: Metoprolol Succinate 25 MG Tab.ER PO SCH (09:00)
[2017-09-12 09:01] VITALS: BP 134/99
[2017-09-12] MEDS: Ondansetron 4 MG Tab.DIS PO PRN (09:01)
--- NOTE | 2017-09-12 09:07 | CR ---
Abdomen 2V AP Flat Upright INDICATION: Post op ileus FINDINGS: Comparison 09/11/2017. Contrast in the colon. Increased gas in the colon and rectum. On the supine view, there is suggestion of free air beneath the right hemidiaphragm. This is new since prior x-ray; clinically correlate if the patient has had recent surgical intervention. Findings discussed with Dr. Whitehead by telephone at 9:05 AM on 09/12/2017.
--- NOTE | 2017-09-12 10:11 | DISCH ---
ADMISSION DIAGNOSES: 1. Partial small bowel obstruction, SP Robyn-en-Y gastric bypass surgery, unspecified surgical malabsorption. 2. B12 deficiency. 3. Type 2 diabetes, resolved after Robyn-en-Y gastric bypass surgery. 4. History of tobacco dependence. 5. Cerebrovascular accident. 6. Uncontrolled hypertension. 7. History of nephrolithiasis. DISCHARGE DIAGNOSES: 1. Exploratory laparotomy, small bowel resection, reduction of small bowel volvulus, and repair of incisional hernia. Date of surgery, 09/06/2017. 2. Postop ileus. 3. Uncontrolled hypertension. HISTORY: Nilton Mclaughlin is a 57-year-old male who presented to the emergency room with abdominal pain. After preoperative evaluation and discussion of possible risks and possible complications, he wished to proceed with surgical procedure. HOSPITAL COURSE: Nilton had his surgery on 09/06/2017. He had no operative complications. On postop day #1, he was started on a step-2 gastric bypass diet and his lisinopril was restarted. On postop day #2, his DYE HOUSE HAND was discontinued. He was started on oral Dilaudid and he was given milk of mag with 2 Dulcolax tablets 1 hour later. On 09/09/2017, he felt bloated, had 2 small emesis, was backed off to ice chips and did develop an ileus. At that time, he was started on Dulcolax suppositories and senna plus. Abdominal films were followed. On 09/10/2017, he started to pass some gas, felt like he was vomiting or getting dry heaves from the Dilaudid. He was changed to morphine and that did not seem to make a difference, so he was started on tramadol and given MiraLAX and Flexeril. On 09/11/2017, hospitalist was consulted regarding persistent hypertension because he did receive labetalol during the night for elevated systolic and diastolic pressures. Nilton states he did have some small bowel movements and by 09/12/2017, he was ready to be discharged to home after having a large bowel movement. Vital signs have been stable. Pain has been managed. REVIEW OF SYSTEMS: Remainder of review of systems negative for any pertinent positives and negatives. OBJECTIVE: GENERAL: Nilton Mclaughlin is a 57-year-old male. VITAL SIGNS: Height 6 feet, weight 212 pounds. TPR is 97.3, 65, 18. Blood pressure 134/91. HEENT: Negative. NECK: Supple. HEART: Regular rate and rhythm. LUNGS: Clear. ABDOMEN: Chandrika intact. Abdominal binders on. EXTREMITIES: Without peripheral edema. DISPOSITION: Discharged to home. CONDITION: Stable and improving. FOLLOWUP: Followup appointment with Qing Hale PA-C on 09/20/2017 at 9:00 a.m. and to follow up with Dr. Wily Goemz within 1 week in regard to his blood pressure. DISCHARGE MEDICATIONS: New medications: 1. Reglan 10 mg q.6 hours p.r.n. nausea, #30. 2. Tylenol 650 mg oral q.6 hours p.r.n. pain. 3. Celebrex 200 mg p.o. daily, #14 take with food. 4. Metoprolol succinate or Toprol-XL 25 mg oral daily, #90. 5. Zofran ODT 4 mg under the tongue p.r.n. nausea. 6. Ultram or tramadol 50 mg take 1 to 2 q.4 hours p.r.n. pain, #40. He is to resume taking his home medication, lisinopril 20 mg daily and his vitamins and supplements. DIET: Step-3 gastric bypass diet. Drink 8 to 10 glasses of water a day. ACTIVITY: No lifting greater than 10 pounds for 6 weeks. OTHER ACTIVITY: Wear abdominal binder for 6 weeks and as tolerated. Driving, do not drive on pain medication. May shower. No tub bath or bathing. Notify provider if any fever, increased pain, drainage, nausea, or vomiting. Keep site clean and dry. Wear abdominal binder for 2 weeks and then as tolerated. SPECIAL INSTRUCTION: Use incentive spirometer 10 times every hour while awake.
--- NOTE | 2017-09-19 13:02 | OR ---
DATE OF PROCEDURE: 09/06/2017 PREOPERATIVE DIAGNOSIS: Partial small-bowel obstruction. POSTOPERATIVE DIAGNOSIS: Partial small-bowel obstruction associated with: 1. Small bowel volvulus. 2. 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 3. Incarcerated trocar site incisional hernia. OPERATIVE PROCEDURES: Exploratory laparotomy with: 1. Reduction of small bowel volvulus and closure of internal hernia (33550). 2. Revision of jejunojejunostomy component of Robyn-en-Y gastric bypass (63724). 3. Repair of incarcerated trocar incisional hernia (94255). ANESTHESIA: General. PSYCH THERAPIST: Qing Hale PA-C. INDICATIONS FOR PROCEDURE: This is a 57-year-old, status post Robyn-en-Y gastric bypass, presenting with some symptoms of partial small-bowel obstruction. The patient presents with quite distended portion of the small bowel. Given this, we will proceed directly with a laparotomy to avoid risk of trocar insertion site injuries of the small bowel resulting in a potential spill. Potential risks of procedure including bleeding, infection, injury to underlying viscera, leaks from the upper GI tract closures that might be required, as well as possibility of recurrence of the bowel obstruction, and lastly, the possibility of cardiopulmonary, septic, or hemorrhagic complications leading to were all discussed, and the patient wishes to proceed. DETAILS OF PROCEDURE: The patient was taken to the operating room, and after general endotracheal anesthesia was induced, bilateral subcostal transversus abdominis plane blocks were placed using continuous ultrasound and the standard solution being placed on each side. Khan catheter was inserted, and the abdomen prepped and draped. A midline incision from the umbilicus, roughly a handsbreadth superior to that was then made and carried down through the skin, subcutaneous tissue, the midline fascia, and into the peritoneal cavity. Upon entering the peritoneal cavity, the patient initially noted to have a significant small bowel volvulus through the leaves of the mesentery at the jejunojejunostomy. This was reduced. The bowel initially had somewhat of a venous congestion pattern that became normal once the volvulus was reduced. At that point, the patient was noted to have a fixed angulation or stricturing at the junction of the Robyn limb as it joined the jejunojejunostomy which was felt to be best treated by means of revision. The patient at this point has gotten very good weight loss, so we thus divided the small bowel at that level with a GLORAI hay load. A small portion of the bowel was then resected as the end of it was somewhat devascularized with both firings with the GLORIA hay loads. The Robyn limb at this point was noted to be 120 cm. The patient has been having very good weight loss as well as comorbidity reduction, so we did not significantly change the common limb length in this case, moving around 20 cm distal to the original jejunojejunostomy, and the new jejunojejunostomy was then revised at that level with [id number] enteroenterostomy with a GLORIA hay load, and the common opening closed with purple load, angles anastomosed, and the mesenteric defect was approximated with some 3-0 Vicryl stitch at the angled anastomosis and with a 2-0 silk stitch for closure of the mesenteric defect. At that point, no further problems were noted. The abdomen was irrigated with antibiotic-containing saline solution. During the course of the initial entrance of the abdomen, the patient was noted to have a trocar site hernia containing some incarcerated preperitoneal fat and a small amount of omentum. This had been reduced. The midline fascia was then approximated with a #2 Vicryl stitch which included repair of the hernia and the subcutaneous tissue was approximated with 2 layers of 3-0 Vicryl stitch deep and tiffani for the skin. Dressing was applied. The patient was taken to the recovery room in a satisfactory condition. There were no evident complications. Physician virtual assistant for advertisers, Qing Hale, played an essential role in assisting in this case, helping to position the patient, retract structures as needed, as well as suturing and cutting sutures when indicated. Her presence improved patient safety and decreased the operative time. Say Whitehaed MD /[id number]
== END 2017-09-12 09:25 | disposition home or self-care (01) | DRG 330 ==
LOC: JP.ED 20:08 → JP.2SS 23:50
PROVIDERS: ADMIT Surgery; ATTEND Surgery
PROC: 0DS80ZZ Reposition Small Intestine, Open Approach (ICD-10-PCS; principal; 2017-09-06)
PROC: 0DB80ZX Excision of Small Intestine, Open Approach, Diagnostic (ICD-10-PCS; 2017-09-06)
PROC: 0DQV0ZZ Repair Mesentery, Open Approach (ICD-10-PCS; 2017-09-06)
PROC: 0WQF0ZZ Repair Abdominal Wall, Open Approach (ICD-10-PCS; 2017-09-06)
PROC: 3E0T3BZ Introduction of Anesthetic Agent into Peripheral Nerves and Plexi, Percutaneous Approach (ICD-10-PCS; 2017-09-06)
DX: K56.2 Volvulus (principal); K91.2 Postsurgical malabsorption, not elsewhere classified; K43.0 Incisional hernia with obstruction, without gangrene; K56.7 Ileus, unspecified; I10 Essential (primary) hypertension; F17.210 Nicotine dependence, cigarettes, uncomplicated; Z98.84 Bariatric surgery status; Z98.0 Intestinal bypass and anastomosis status; M19.90 Unspecified osteoarthritis, unspecified site; Z86.73 Personal history of transient ischemic attack (TIA), and cerebral infarction without residual deficits; Z86.39 Personal history of other endocrine, nutritional and metabolic disease; Z85.828 Personal history of other malignant neoplasm of skin; E53.8 Deficiency of other specified B group vitamins; Z87.442 Personal history of urinary calculi
CPT/HCPCS: 36415; 74019; 74019-26; 74177; 74240; 74240-26; 80048; 80053; 82150; 83605; 83690; 85025; 88307; 94762; 96361; 96374; 99285-25; A9270-GY; C9113; J0171; J0330; J0694; J1100; J1170; J1644; J1940; J2001; J2060; J2185; J2405; J2704; J2710; J2765; J2795; J3010; J3410; J3411; J3420; J7030; J7042; J7050; J7120; Q9967

== ENCOUNTER 2019-02-06 16:21 | Emergency (ER) | payer SELFPAY ==
[2019-02-06 16:37] VITALS: BP 171/91; PULSE 81
--- NOTE | 2019-02-06 16:56 | EDM.PDOC ---
ED HPI GENERAL MEDICAL PROBLEM - General Chief Complaint: Genitourinary Problem Stated Complaint: KINDEY STONE Time Seen by Provider: 02/06/19 16:51 Source of Information: Reports: Patient, Family, Provider, RN Notes Reviewed History Limitations: Reports: No Limitations - History of Present Illness INITIAL COMMENTS - FREE TEXT/NARRATIVE: 58-year-old gentleman presents emergency department today complaint of abdominal pain, he is a known history of nephrolithiasis was initially evaluated in the clinic lab work was done at that time showed acute renal failure with creatinine at 2.0 and elevated WBC at 14 urine showed large amount of blood, he has had left flank pain for the last 4 days Will get nauseated with increasing pain - Related Data Allergies Allergy/AdvReac Type Severity Reaction Status Date / Time No Known Allergies Allergy Verified 09/05/17 20:50 Home Meds: Home Meds Aspirin 81 mg PO DAILY 02/06/19 [History] Cholecalciferol (Vitamin D3) [Vitamin D3] 2,000 unit PO DAILY 02/06/19 [History] Cyanocobalamin (Vitamin B-12) [Vitamin B-12] 2,000 mg PO DAILY 02/06/19 [History ] Thiamine HCl [Vitamin B-1] 100 mg PO DAILY 02/06/19 [History] Zinc Gluconate [Zinc] 50 mg PO DAILY 02/06/19 [History] Past Medical History HEENT History: Reports: Other (See Below) Other HEENT History: deviated septum Cardiovascular History: Reports: High Cholesterol, Hypertension Respiratory History: Reports: Sleep Apnea Genitourinary History: Reports: Renal Calculus Musculoskeletal History: Reports: Arthritis Neurological History: Reports: TIA Other Neuro History: 11/2016 Endocrine/Metabolic History: Reports: Diabetes, Type II, Obesity/BMI 30+ Hematologic History: Reports: Iron Deficiency Oncologic (Cancer) History: Reports: Basal Cell Carcinoma - Infectious Disease History Infectious Disease History: Reports: Chicken Pox, Measles, Mumps, Shingles - Past Surgical History Head Surgeries/Procedures: Reports: None HEENT Surgical History: Reports: Eye Surgery Cardiovascular Surgical History: Reports: None Respiratory Surgical History: Reports: None GI Surgical History: Reports: Appendectomy, Bariatric Procedure, EGD Male Surgical History: Reports: Lithotripsy (ESWL), Ureteral Stent Endocrine Surgical History: Reports: None Neurological Surgical History: Reports: None Musculoskeletal Surgical History: Reports: Arthroscopic Knee, Shoulder Surgery, Other (See Below) Other Musculoskeletal Surgeries/Procedures:: ankle surgery Oncologic Surgical History: Reports: None Dermatological Surgical History: Reports: Skin Biopsy Social & Family History - Family History Family Medical History: Noncontributory - Tobacco Use Smoking Status *Q: Never Smoker - Caffeine Use Caffeine Use: Reports: Coffee - Recreational Drug Use Recreational Drug Use: No ED ROS GENERAL - Review of Systems Review Of Systems: See Below Constitutional: Reports: No Symptoms HEENT: Reports: No Symptoms Respiratory: Reports: No Symptoms Cardiovascular: Reports: No Symptoms GI/Abdominal: Reports: Nausea : Reports: Flank Pain, Hematuria Musculoskeletal: Reports: No Symptoms ED EXAM, GI/ABD - Physical Exam Exam: See Below Exam Limited By: No Limitations General Appearance: Alert, Mild Distress Respiratory/Chest: No Respiratory Distress, Lungs Clear, Normal Breath Sounds, No Accessory Muscle Use, Chest Non-Tender Cardiovascular: Regular Rate, Rhythm, No Murmur GI/Abdominal Exam: Soft, Tender (Along the left flank) Back Exam: Normal Inspection, Full Range of Motion. No: CVA Tenderness (R), CVA Tenderness (L) Course - Vital Signs Last Recorded V/S: Last Vital Signs Temp 98.4 F 02/06/19 16:39 Pulse 81 02/06/19 16:39 Resp 16 02/06/19 16:39 BP 171/91 H 02/06/19 16:39 Pulse Ox 99 02/06/19 16:39 - Orders/Labs/Meds Orders: Active Orders 24 hr Category Date Time Status Peripheral IV Care [RC] . DIRECTED Care 02/06/19 16:54 Active Sodium Chloride 0.9% [Saline Flush] Med 02/06/19 16:54 Active 10 ml FLUSH ASDIRECTED PRN Peripheral IV Insertion Adult [OM.PC] Urgent Oth 02/06/19 16:53 Ordered Medication Orders Sodium Chloride (Saline Flush) 10 ml FLUSH ASDIRECTED PRN PRN Reason: Keep Vein Open Last Admin: 02/06/19 17:14 Dose: 10 ml Meds: Medications Generic Name Dose Route Start Last Admin Trade Name Freq PRN Reason Stop Dose Admin Sodium Chloride 10 ml 02/06/19 16:54 02/06/19 17:14 Saline Flush FLUSH 10 ml ASDIRECTED PRN Administration Keep Vein Open Discontinued Medications Generic Name Dose Route Start Last Admin Trade Name Freq PRN Reason Stop Dose Admin Diphenhydramine HCl Confirm 02/06/19 17:09 02/06/19 17:22 Benadryl Administered 02/06/19 17:10 Not Given Dose 50 mg .ROUTE .STK-MED ONE Diphenhydramine HCl 25 mg 02/06/19 17:15 02/06/19 17:16 Benadryl IVPUSH 02/06/19 17:16 25 mg ONETIME ONE Administration Lactated Ringer's 1,000 mls @ 999 mls/hr 02/06/19 16:53 02/06/19 17:06 Ringers, Lactated IV 02/06/19 17:53 999 mls/hr BOLUS ONE Administration Ketorolac Tromethamine 30 mg 02/06/19 16:53 02/06/19 17:01 Toradol IVPUSH 02/06/19 16:54 30 mg ONETIME ONE Administration Ondansetron HCl 4 mg 02/06/19 16:53 02/06/19 17:01 Zofran IVPUSH 02/06/19 16:54 4 mg ONETIME ONE Administration Departure - Departure Time of Disposition: 18:27 Disposition: DC/Tfer to Acute Hospital 02 Condition: Fair Clinical Impression: Nephrolithiasis - Discharge Information Referrals: Wily Gomez MD [Primary Care Provider] - Forms: ED Department Discharge Additional Instructions: Please report to the [facility] emergency department registration desk tonight. - My Orders Last 24 Hours: My Active Orders 02/06/19 16:53 Peripheral IV Insertion Adult [OM.PC] Urgent 02/06/19 16:54 Peripheral IV Care [RC] . DIRECTED Sodium Chloride 0.9% [Saline Flush] 10 ml FLUSH ASDIRECTED PRN - Assessment/Plan Last 24 Hours: My Active Orders 02/06/19 16:53 Peripheral IV Insertion Adult [OM.PC] Urgent 02/06/19 16:54 Peripheral IV Care [RC] . DIRECTED Sodium Chloride 0.9% [Saline Flush] 10 ml FLUSH ASDIRECTED PRN Plan: Assessment Acuity = acute Site and laterality = left nephrolithiasis 11 x 8 mm with hydronephrosis Etiology = unknown Manifestations = flank pain, nausea Location of injury = Home Lab values = CT scan in the ED demonstrates stone above review of lab work done in the clinic reveal no white cells in the in the urine he does have tender 20 RBCs in the urine creatinine is up to 2.0 on the CMP consistent with acute renal failure and WBC is up to 14.0 on the CBC Plan Called discussed case with Dr. Jacoem ED physician at [facility] kindly accepted the patient at 1820 he'll be transported via private vehicle for further evaluation This note was dictated using [employer] voice recognition software please call with any questions on syntax or grammar.
[2019-02-06] MEDS: Ketorolac 30 MG/ML SDV IVPUSH ONE (17:01)
[2019-02-06] MEDS: Ondansetron 4 MG/2 ML SDV IVPUSH ONE (17:01)
[2019-02-06] MEDS: Lactated Ringers 1,000 ML IV ONE (17:06)
[2019-02-06] MEDS: Sodium Chloride 0.9% 10 ML Syringe FLUSH PRN (17:14)
[2019-02-06] MEDS: diphenhydrAMINE 50 MG/ML SDV IVPUSH ONE (17:16)
[2019-02-06] MEDS: diphenhydrAMINE 50 MG/ML SDV ONE (17:22)
--- NOTE | 2019-02-06 18:14 | CRLCT ---
INDICATION: Left flank pain TECHNIQUE: CT abdomen and pelvis without contrast. COMPARISON: None. FINDINGS: Lower chest: Minimal reticular interstitial prominence in the lung bases with slight honeycombing consistent minimal fibrosis. Liver: Normal in size and attenuation. No masses. Gallbladder and bile ducts: No stones or inflammation. No biliary dilatation. Pancreas: Unremarkable. No mass or inflammation. Spleen: Normal in size. No masses. Adrenal glands: Normal in size. No nodules. Kidneys: 2 centimeter cyst in the upper pole the right kidney, 2.5 centimeter cyst at the mid kidney and 4.1 centimeter cyst at the lower pole. Multiple nonobstructing stones are present in the right kidney without evidence of ureteral stone or hydronephrosis. Multiple cysts and nonobstructing stones are identified at the left kidney with moderate hydronephrosis and a ureteropelvic junction stone measuring 11 x 8 millimeters. More distal left ureter is decompressed. GI tract: Status post gastric bypass. No evidence of obstruction with a large amount of stool within the colon. Vasculature: Atherosclerosis without abdominal aortic aneurysm. Pelvis: Mild prostatic enlargement. Some calcifications within the dependent portion of the bladder. Bones: Unremarkable for age. IMPRESSION: 1. Nephrolithiasis with moderate left hydronephrosis and an obstructing left ureteropelvic junction stone measuring 11 x 8 millimeters. Please note that all CT scans at this facility use dose modulation, iterative reconstruction, and/or weight-based dosing when appropriate to reduce radiation dose to as low as reasonably achievable. Dictated by Iftikhar James MD @ Feb 06 2019 6:05PM Signed by Dr. Iftikhar James @ Feb 06 2019 6:12PM
== END 2019-02-06 18:51 ==
LOC: JP.ED 16:21
DX: N13.2 Hydronephrosis with renal and ureteral calculous obstruction (principal); I10 Essential (primary) hypertension; E11.9 Type 2 diabetes mellitus without complications; E78.00 Pure hypercholesterolemia, unspecified; M19.90 Unspecified osteoarthritis, unspecified site; E66.9 Obesity, unspecified; Z68.25 Body mass index [BMI] 25.0-25.9, adult; Z79.82 Long term (current) use of aspirin; Z79.899 Other long term (current) drug therapy
CPT/HCPCS: 74176; 96361; 96374; 96375; 99284; J1200; J1885; J2405; J7120

== ENCOUNTER 2019-12-19 07:43 | Inpatient (IN) | payer OTHER ==
[~2019-12-19 07:43] MED LIST: Bupivacaine 0.5% 50 ML MDV ONE; Dexamethasone 4 MG/ML SDV ONE; Glycopyrrolate 0.2 MG/ML 5 ML MDV ONE; Lidocaine 1% with EPINEPHrine 1:100,000 50 ML MDV ONE; Meropenem 500 MG SDV ONE; Neostigmine Methylsulfate 1 MG/ML 5 ML Syringe ONE; Ondansetron 4 MG/2 ML SDV ONE; Propofol 200 MG/20 ML SDV ONE; Rocuronium 50 MG/5 ML Vial ONE; Succinylcholine 200 MG/10 ML MDV ONE; fentaNYL 250 MCG/5 ML SDV ONE
[2019-12-19] MEDS ORDERED: Acetaminophen 500 MG Tab PO ONE (07:45)
[2019-12-19] MEDS ORDERED: Dextrose 5%-Lactated Ringers 1,000 ML IV SCH (08:15)
[2019-12-19] MEDS ORDERED: Scopolamine 1.5 MG Transdermal Patch TOP ONE (08:20)
[2019-12-19] MEDS ORDERED: ceFAZolin 2 GM in Premix Bag 1 BAG IV ONE (09:15)
[2019-12-19] MEDS ORDERED: Ketamine 500 MG/5 ML MDV IV SCH (09:30)
[2019-12-19] MEDS ORDERED: Ketamine 50 MG in Sodium Chloride 0.9% 49.5 ML IV SCH (09:30)
[2019-12-19] MEDS ORDERED: Ropivacaine 44 ML, dexAMETHasone 8 MG, EPINEPHrine 0.4 MG, Sodium Chloride 0.9% 33.6 ML NERVRT SCH ×4 (09:30)
[2019-12-19] MEDS ORDERED: fentaNYL 250 MCG/5 ML SDV ONE (09:51)
[2019-12-19] MEDS ORDERED: Lactated Ringers 1,000 ML ONE (09:54)
[2019-12-19] MEDS ORDERED: diphenhydrAMINE 25 MG Cap PO PRN (11:06)
[2019-12-19] MEDS ORDERED: Naloxone 0.4 MG/ML SDV IVPUSH PRN (11:06)
[2019-12-19] MEDS ORDERED: diphenhydrAMINE 50 MG/ML SDV IVPUSH PRN (11:06)
[2019-12-19] MEDS: HYDROmorphone/Normal Saline 15 MG/30 ML PCA IV PRN (11:16)
[2019-12-19] MEDS ORDERED: hydrOXYzine HCL 100 MG/2 ML SDV IM PRN (13:36)
[2019-12-19] MEDS: Dextrose 5%-Lactated Ringers 1,000 ML IV SCH ×2 (17:43→23:50)
[2019-12-19] MEDS: ceFAZolin 2 GM in Premix Bag 1 BAG IV SCH (18:14)
[2019-12-19] MEDS: Tamsulosin 0.4 MG Cap.ER PO SCH (20:34)
[2019-12-19] MEDS ORDERED: Lidocaine 2% Jelly 10 ML Urojet MUCMEM ONE (22:59)
[2019-12-20] MEDS: ceFAZolin 2 GM in Premix Bag 1 BAG IV SCH ×2 (02:34→09:33)
[2019-12-20] MEDS: Ondansetron 4 MG/2 ML SDV IVPUSH PRN ×2 (02:47→23:42)
[2019-12-20] MEDS: Dextrose 5%-Lactated Ringers 1,000 ML IV SCH ×4 (06:09→23:37)
[2019-12-20] MEDS: Cyclobenzaprine 10 MG Tab PO PRN ×2 (08:18→14:16)
[2019-12-20] MEDS: Bisacodyl 5 MG Tab PO SCH ×2 (08:20→21:39)
[2019-12-20] MEDS: Docusate Sodium 100 MG Cap PO SCH ×2 (08:20→21:39)
[2019-12-20] MEDS ORDERED: Tamsulosin 0.4 MG Cap.ER PO ONE (08:30)
[2019-12-20] MEDS: Ondansetron 4 MG Tab.DIS PO PRN (09:39)
[2019-12-20] MEDS ORDERED: Furosemide 20 MG/2 ML VIAL IVPUSH ONE (16:30)
--- NOTE | 2019-12-20 16:31 | PN ---
DATE OF SERVICE: 12/20/2019 SUBJECTIVE: Tony is postoperative day 1. Vital signs have been stable, pain controlled. He has been up ambulating. Unable to void last evening, catheter was replaced, and he had 1200 mL residual. REVIEW OF SYSTEMS: Remainder of review of systems negative for any pertinent positives or negatives. OBJECTIVE: GENERAL: Tony is a 59-year-old male. VITAL SIGNS: TPR at 0700; 98.7, 83, 18, blood pressure 146/79. HEENT: Negative. NECK: Supple. HEART: Regular rate and rhythm. LUNGS: Clear. ABDOMEN: Dressing dry and intact. Abdominal binder is on. EXTREMITIES: Without peripheral edema. ASSESSMENT: Exploratory laparotomy with: 1. Repair of incarcerated incisional hernia and incarcerated umbilical hernia with mesh. 2. Placement of Interceed mesh x2. POSTOPERATIVE DIAGNOSES: 1. Incarcerated incisional hernia. 2. Incarcerated umbilical hernia. 3. Extensive intraabdominal adhesions. Date of surgical procedure: 12/19/2019. Surgeon: Say Whitehead MD. PLAN: 1. Flomax 0.4 mg IV 1 time now. 2. Remove Khan in a.m., 0500, 12/21/2019. 3. Colace 100 mg p.o. b.i.d. and Dulcolax tablets 10 mg b.i.d. p.o. 4. Continue use of incentive spirometer and ambulation. 5. We will evaluate p.r.n. or in a.m. Qing Hale PA-C /[id number]
[2019-12-20] MEDS: HYDROmorphone/Normal Saline 15 MG/30 ML PCA IV PRN (19:53)
[2019-12-20] MEDS: Tamsulosin 0.4 MG Cap.ER PO SCH (21:39)
[2019-12-20] MEDS: Labetalol 20 MG/4 ML Syringe IVPUSH PRN ×2 (23:11→23:29)
[2019-12-21] MEDS: Cyclobenzaprine 10 MG Tab PO PRN ×2 (05:21→21:27)
[2019-12-21] MEDS: Labetalol 20 MG/4 ML Syringe IVPUSH PRN ×3 (05:55→12:27)
[2019-12-21] MEDS: Ondansetron 4 MG Tab.DIS PO PRN ×2 (05:55→18:44)
[2019-12-21] MEDS: Docusate Sodium 100 MG Cap PO SCH ×2 (08:09→21:27)
[2019-12-21] MEDS: Bisacodyl 5 MG Tab PO SCH ×2 (08:09→21:26)
[2019-12-21] MEDS ORDERED: Sodium Chloride 0.9% 1,000 ML IV SCH (13:45)
--- NOTE | 2019-12-21 14:17 | PCM.CONS ---
H&P History of Present Illness - General Date of Service: 12/21/19 Admit Problem/Dx: Admission Diagnosis/Problem Admission Diagnosis/Problem Hernia repair Source of Information: Patient, Provider History Limitations: Reports: No Limitations - History of Present Illness Initial Comments - Free Text/Narative: CC: I can't get a deep breath HPI: Nilton is postop day 2 from an incisional hernia repair. I was asked to see him by Dr. Whitehead today regarding hypertension and dyspnea. He reports that over the past 24 hours he has felt more short of breath. He had been able to get his incentive spirometer up to 2500 mL but now can only get up to 1500 mL. He had very mild chest tightness earlier in the day but no chest pain. This has resolved. He does feel short of breath compared to baseline. He is not coughing much. He had a low-grade temperature elevation this afternoon. His abdominal pain is mild at rest but moderately severe with any sort of activity especially when he is trying to sit up. He has not passed gas or had a bowel movement as of yet. No lower extremity edema. He checks his blood pressure once a week at home and it is always in the normal range. He has not been on any antihypertensive medication since his gastric bypass surgery. Blood pressures over the past 24+ hours have been elevated with systolic pressures in the 150-170 range. Diastolic pressures have been in the 90s and low 100s. Middle Abdomen Pain Score (Numeric/FACES): 8 - Related Data Allergies/Adverse Reactions: Allergies Allergy/AdvReac Type Severity Reaction Status Date / Time ketorolac [From Toradol] Allergy Rash Verified 12/19/19 08:16 Pzrdbik-Jjb-Zia Reductase Allergy Muscle Verified 12/19/19 08:16 Inhibitor Aches tromethamine Allergy Rash Verified 12/19/19 08:16 Home Medications: Home Meds Aspirin 81 mg PO DAILY 02/06/19 [History] Cyanocobalamin (Vitamin B-12) [Vitamin B-12] 2,000 mg PO DAILY 02/06/19 [History] Thiamine HCl [Vitamin B-1] 100 mg PO DAILY 02/06/19 [History] Zinc Gluconate [Zinc] 50 mg PO DAILY 02/06/19 [History] Cholecalciferol (Vitamin D3) [Vitamin D] 5,000 units PO DAILY 12/16/19 [History] Multivitamin [Multiple Vitamins] 1 tab PO BID 12/16/19 [History] Tamsulosin HCl [Flomax] 0.4 mg PO DAILY 12/16/19 [History] Potassium Gluconate [Potassium] 600 mg PO DAILY 12/19/19 [History] Past Medical History HEENT History: Reports: Other (See Below) Other HEENT History: deviated septum Cardiovascular History: Reports: High Cholesterol, Hypertension Respiratory History: Reports: Sleep Apnea Gastrointestinal History: Reports: Bowel Obstruction, GERD, Other (See Below) Other Gastrointestinal History: incsisional hernia Genitourinary History: Reports: Renal Calculus Musculoskeletal History: Reports: Arthritis, Fracture, Other (See Below) Other Musculoskeletal History: right ankle fracture Neurological History: Reports: TIA Other Neuro History: 11/2016 Endocrine/Metabolic History: Reports: Diabetes, Type II, Obesity/BMI 30+ Hematologic History: Reports: Iron Deficiency Oncologic (Cancer) History: Reports: Basal Cell Carcinoma Dermatologic History: Reports: Other (See Below) Other Dermatologic History: basal cell CA - Infectious Disease History Infectious Disease History: Reports: Chicken Pox, Measles, Mumps, Shingles - Past Surgical History Head Surgeries/Procedures: Reports: None HEENT Surgical History: Reports: Cataract Surgery, Eye Surgery Cardiovascular Surgical History: Reports: None Respiratory Surgical History: Reports: None GI Surgical History: Reports: Appendectomy, Bariatric Procedure, EGD, Other (See Below) Other GI Surgeries/Procedures: bowel obstruction Male Surgical History: Reports: Lithotripsy (ESWL), Ureteral Stent Endocrine Surgical History: Reports: None Neurological Surgical History: Reports: None Musculoskeletal Surgical History: Reports: Arthroscopic Knee, Shoulder Surgery, Other (See Below) Other Musculoskeletal Surgeries/Procedures:: ankle surgery Oncologic Surgical History: Reports: None Dermatological Surgical History: Reports: Skin Biopsy Social & Family History - Family History Family Medical History: Noncontributory - Tobacco Use Smoking Status *Q: Former Smoker Years of Tobacco use: 40 Used Tobacco, but Quit: Yes Month/Year Tobacco Last Used: quit 2 weeks ago - Caffeine Use Caffeine Use: Reports: Coffee - Recreational Drug Use Recreational Drug Use: No H&P Review of Systems - Review of Systems: Review Of Systems: See Below Free Text/Narrative: A complete 12 point review of systems was obtained. Pertinent positives and negatives are noted in the history of present illness. All other systems were reviewed and were negative except as noted. Exam - Exam Exam: See Below - Vital Signs Vital Signs: Last Vital Signs Temp 38.2 C H 12/21/19 13:21 Pulse 90 12/21/19 12:33 Resp 18 12/21/19 11:44 BP 173/94 H 12/21/19 13:15 Pulse Ox 91 L 12/21/19 12:32 Weight: 85.275 kg - Exam Quality Assessment: Supplemental Oxygen General: Alert, Oriented, Cooperative, Mild Distress HEENT: Conjunctiva Clear, Mucosa Moist & [place]. No: Scleral Icterus Neck: Supple, Trachea Midline Lungs: Decreased Breath Sounds (Both bases), Crackles (Rare both bases). No: Normal Respiratory Effort (Mild increase in work of breathing ), Wheezing Cardiovascular: Regular Rate, Regular Rhythm, Other (Hyperdynamic) GI/Abdominal Exam: Soft, No Distention, Abnormal Bowel Sounds (Mild hypoactive) Extremities: No Pedal Edema. No: Increased Warmth Skin: Warm, Dry Neuro Extensive - Mental Status: Alert, Oriented x3 Neuro Extensive - Motor, Sensory, Reflexes: No: Abnormal Reflexes, Abnormal Motor Psychiatric: Alert, Normal Affect Sepsis Event Note - Evaluation Sepsis Screening Result: No Definite Risk - Focused Exam Vital Signs: Vital Signs Temp Pulse Resp BP Pulse Ox 12/21/19 13:21 38.2 C H 12/21/19 13:15 173/94 H 12/21/19 12:46 166/96 H 12/21/19 12:33 90 166/96 H 12/21/19 12:32 91 L 12/21/19 12:29 96 167/98 H 12/21/19 11:48 91 166/102 H 12/21/19 11:44 18 168/103 H 12/21/19 11:35 101 H 162/97 H 12/21/19 11:00 38.0 C 102 H 16 180/102 H 91 L 12/21/19 07:20 96 12/21/19 07:19 37.0 C 89 16 157/90 H 95 12/21/19 06:20 125/81 12/21/19 06:08 92 136/77 12/21/19 06:00 141/80 H 12/21/19 05:00 37.4 C 96 16 167/100 H 97 *Q Meaningful Use (ADM) - VTE Risk Assess *Q Each Risk Factor Represents 1 Point: None Total Score 1 Point Risk Factors: 0 Each Risk Factor Represents 2 Points: Age 60 - 74 Years, Laparoscopic surgery greater than 45 minutes Total Score 2 Point Risk Factors: 4 Each Risk Factor Represents 3 Points: None Total Score 3 Point Risk Factors: 0 Each Risk Factor Represents 5 Points: None Total Score 5 Point Risk Factors: 0 Venous Thromboembolism Risk Factor Score *Q: 4 Consult PN Assessment/Plan POD#: 2 Procedures: Procedures BLOOD TYPING SEROLOGIC ABO (11/03/16) BLOOD TYPING SEROLOGIC RH(D) (11/03/16) COMPLETE CBC W/AUTO DIFF WBC (11/27/16) COMPREHEN METABOLIC PANEL (11/27/16) CT ABD & PELVIS W/O CONTRAST (02/06/19) CT HEAD/BRAIN W/O DYE (11/27/16) EMERGENCY DEPT VISIT (02/06/19) EMERGENCY DEPT VISIT (11/27/16) EMERGENCY DEPT VISIT (08/05/14) HYDRATE IV INFUSION ADD-ON (02/06/19) POLYSOM 6/> YRS 4/> COMFORT (09/11/16) RBC ANTIBODY SCREEN (11/03/16) ROUTINE VENIPUNCTURE (11/27/16) THER/PROPH/DIAG INJ IV PUSH (02/06/19) TX/PRO/DX INJ NEW DRUG ADDON (02/06/19) URINALYSIS AUTO W/SCOPE (08/05/14) (1) Postoperative hypertension SNOMED Code(s): 8474121053981 Code(s): I97.3 - POSTPROCEDURAL HYPERTENSION Current Visit: Yes Problem List Initiated/Reviewed/Updated: Yes My Orders Last 24 Hours: My Active Orders 12/21/19 13:45 Sodium Chloride 0.9% [Normal Saline] 1,000 ml IV ASDIRECTED 12/21/19 14:10 Furosemide [Lasix] 40 mg IVPUSH ONETIME ONE Plan: ASSESSMENT AND RECOMMENDATIONS- Postoperative hypertension-there is also associated shortness of breath and reduced lung capacity. Blood pressures initially were normal and inspiratory spirometer use was excellent but these have gone downhill over the past 24 to 36 hours. Abdominal pain is fairly well controlled at rest. I suspect he is developing some volume overload. Low-grade temperature elevation probably related to atelectasis. He did get a dose of furosemide last night and felt better for a little while. -Furosemide 40 mg x 1 now -Decrease IV fluids to TKO -Reassess in a couple hours -If not better in a couple hours then I will get a chest x-ray, EKG and some labs Status post incisional hernia repair-pain fairly well controlled. Not yet passing gas. -Postoperative care as per surgical team Status post gastric bypass surgery Pablo Ontiveros MD Requesting Provider: Dr Whitehead Date Consult Requested: 12/21/19 Reason for Consult: hypertension Patient History Reviewed: Yes Admission H&P Reviewed: No Notified Requestor: No Time Spent (in minutes): 50
[2019-12-21] MEDS ORDERED: Furosemide 40 MG/4 ML VIAL IVPUSH ONE (14:30)
[2019-12-21] MEDS: Acetaminophen 500 MG Tab PO SCH ×2 (16:45→21:27)
--- NOTE | 2019-12-21 17:38 | CRLCR ---
INDICATION: shortness of breath TECHNIQUE: Chest 1 view COMPARISON: None FINDINGS: Elevation right hemidiaphragm with gaseous distention of splenic flexure. Low lung volumes. Mild parenchymal density retrocardiac region. No effusion or pneumothorax. No pulmonary edema. Cardiac silhouette mildly enlarged. IMPRESSION: Decreased lung volumes and left basilar atelectasis or infiltrate. Dictated by Wily Albert MD @ Dec 21 2019 5:35PM Signed by Dr. Wily Albert @ Dec 21 2019 5:36PM
[2019-12-21] MEDS: Tamsulosin 0.4 MG Cap.ER PO SCH (21:27)
[2019-12-22] MEDS: oxyCODONE 5 MG Tab PO PRN (02:41)
[2019-12-22] MEDS: Acetaminophen 500 MG Tab PO SCH ×4 (05:35→21:08)
[2019-12-22] MEDS: Cyclobenzaprine 10 MG Tab PO PRN (05:40)
[2019-12-22] MEDS ORDERED: Zolpidem 5 MG Tab PO PRN (08:10)
[2019-12-22] MEDS: Furosemide 20 MG/2 ML VIAL IVPUSH SCH ×2 (08:38→15:24)
[2019-12-22] MEDS ORDERED: Calcium Carbonate 500 MG Tab.Chew PO PRN (09:18)
[2019-12-22] MEDS: Bisacodyl 5 MG Tab PO SCH ×2 (09:44→21:08)
[2019-12-22] MEDS: Docusate Sodium 100 MG Cap PO SCH ×2 (09:44→21:08)
[2019-12-22] MEDS: Pantoprazole 40 MG Vial IVPUSH SCH ×2 (10:00→21:08)
--- NOTE | 2019-12-22 11:00 | PCM.CONSN ---
- General Info Date of Service: 12/22/19 Subjective Update: No acute events overnight though the patient did not sleep very well. He did have an episode of emesis this morning after getting out of the shower. Pain is well controlled as long as he is not coughing or vomiting. He has not passed any gas but does feel like his intestines are waking up and rumbling. No bowel movement yet. No fevers overnight. Blood pressures remain moderately elevated and systolic pressures have been in the 160s with 1 reading of 140s. He feels a little better today. He feels less short of breath. Feels like he is able to take a deeper breath. He is off oxygen at this time but was on it overnight. Functional Status: Reports: Pain Controlled - Review of Systems General: Denies: Fever Gastrointestinal: Reports: Abdominal Pain. Denies: Flatus - Patient Data Vitals - Most Recent: Last Vital Signs Temp 37.3 C 12/22/19 07:34 Pulse 114 H 12/22/19 07:34 Resp 18 12/22/19 07:34 BP 148/94 H 12/22/19 07:34 Pulse Ox 93 L 12/22/19 10:02 Weight - Most Recent: 85.275 kg I&O - Last 24 Hours: Intake & Output 12/21/19 12/22/19 12/22/19 22:59 06:59 14:59 Intake Total 868 437 Output Total 1775 800 300 Balance -907 -363 -300 Med Orders - Current: Current Medications Acetaminophen (Tylenol Extra Strength) 1,000 mg PO Q6H [facility] Last Admin: 12/22/19 09:45 Dose: 1,000 mg Documented by: Bisacodyl (Dulcolax) 10 mg PO BID [facility] Last Admin: 12/22/19 09:44 Dose: 10 mg Documented by: Calcium Carbonate/Glycine (Tums) 500 mg PO Q2H PRN PRN Reason: Indigestion Cyclobenzaprine HCl (Flexeril) 10 mg PO Q6H PRN PRN Reason: MUSCLE SPASM Last Admin: 12/22/19 05:40 Dose: 10 mg Documented by: Docusate Sodium (Colace) 100 mg PO BID [facility] Last Admin: 12/22/19 09:44 Dose: 100 mg Documented by: Furosemide (Lasix) 20 mg IVPUSH Q6H [facility] Stop: 12/22/19 14:01 Last Admin: 12/22/19 08:38 Dose: 20 mg Documented by: Hydroxyzine HCl (Vistaril) 100 mg IM Q4H PRN PRN Reason: PAIN Labetalol HCl (Normodyne) 5 - 10 mg IVPUSH ASDIRECTED PRN PRN Reason: high bp Last Admin: 12/21/19 12:27 Dose: 10 mg Documented by: Ondansetron HCl (Zofran) 4 mg IVPUSH Q6H PRN PRN Reason: Nausea/Vomiting Last Admin: 12/20/19 23:42 Dose: 4 mg Documented by: Ondansetron HCl (Zofran Odt) 4 mg PO Q4H PRN PRN Reason: Nausea/Vomiting Last Admin: 12/21/19 18:44 Dose: 4 mg Documented by: Oxycodone HCl (Oxycodone) 5 - 10 mg PO Q4H PRN PRN Reason: Pain (moderate 4-6) Last Admin: 12/22/19 02:41 Dose: 5 mg Documented by: Pantoprazole Sodium (Protonix Iv) 40 mg IVPUSH Q12H [facility] Last Admin: 12/22/19 10:00 Dose: 40 mg Documented by: Tamsulosin HCl (Flomax) 0.4 mg PO BEDTIME [facility] Last Admin: 12/21/19 21:27 Dose: 0.4 mg Documented by: Zolpidem Tartrate (Ambien) 5 mg PO BEDTIME PRN PRN Reason: SLEEP Discontinued Medications Acetaminophen (Tylenol Extra Strength) 1,000 mg PO ONETIME ONE Stop: 12/19/19 07:46 Last Admin: 12/19/19 08:19 Dose: 1,000 mg Documented by: Bupivacaine HCl (Marcaine 0.5%) Confirm Administered Dose 50 ml .ROUTE .STK-MED ONE Stop: 12/19/19 06:46 Last Admin: 12/19/19 10:44 Dose: 20 ml Documented by: Ropivacaine 44 ml/Dexamethasone 8 mg/Epinephrine HCl 0.4 mg/ Sodium Chloride 33.6 ml 0 ml NERVRT ASDIRECTED [facility] Last Admin: 12/19/19 10:12 Dose: 80 syringe Documented by: Dexamethasone (Dexamethasone) Confirm Administered Dose 4 mg .ROUTE .STK-MED ONE Stop: 12/19/19 07:41 Diphenhydramine HCl (Benadryl) 25 mg IVPUSH Q6H PRN PRN Reason: Itching Diphenhydramine HCl (Benadryl) 25 mg PO Q6H PRN PRN Reason: Itching Fentanyl (Sublimaze) Confirm Administered Dose 250 mcg .ROUTE .STK-MED ONE Stop: 12/19/19 07:44 Fentanyl (Sublimaze) Confirm Administered Dose 250 mcg .ROUTE .ST-MED ONE Stop: 12/19/19 09:52 Furosemide (Lasix) 20 mg IVPUSH ONETIME ONE Stop: 12/20/19 16:31 Last Admin: 12/20/19 16:44 Dose: 20 mg Documented by: Furosemide (Lasix) 40 mg IVPUSH ONETIME ONE Stop: 12/21/19 14:31 Last Admin: 12/21/19 14:30 Dose: 40 mg Documented by: Glycopyrrolate (Robinul) Confirm Administered Dose 1 mg .ROUTE .[facility]-MED ONE Stop: 12/19/19 07:41 Hydromorphone HCl (Dilaudid Pourer Buggy Ladle 15 Mg In Ns 30 Ml) 0 mg IV ASDIRECTED PRN; Protocol PRN Reason: Pain Last Admin: 12/20/19 19:53 Dose: 15 mg Documented by: Ketamine HCl 50 mg/ Sodium (Chloride) 50 mls @ 23.7 mls/hr IV ASDIRECTED [facility] Cefazolin Sodium/Dextrose 2 gm (/ Premix) 50 mls @ 100 mls/hr IV ONETIME ONE Stop: 12/19/19 09:44 Last Admin: 12/19/19 09:21 Dose: 100 mls/hr Documented by: Dextrose/Lactated Ringer's (Dextrose 5%-Lactated Ringers) 1,000 mls @ 100 mls/hr IV ASDIRECTED [facility] Lactated Ringer's (Ringers, Lactated) Confirm Administered Dose 1,000 mls @ as directed .ROUTE .STK-MED ONE Stop: 12/19/19 09:55 Dextrose/Lactated Ringer's (Dextrose 5%-Lactated Ringers) 1,000 mls @ 175 mls/hr IV ASDIRECTED [facility] Last Admin: 12/20/19 06:09 Dose: 175 mls/hr Documented by: Cefazolin Sodium/Dextrose 2 gm (/ Premix) 50 mls @ 100 mls/hr IV Q8H [facility] Stop: 12/20/19 10:29 Last Admin: 12/20/19 09:33 Dose: 100 mls/hr Documented by: Dextrose/Lactated Ringer's (Dextrose 5%-Lactated Ringers) 1,000 mls @ 100 mls/hr IV ASDIRECTED [facility] Last Admin: 12/20/19 23:37 Dose: 100 mls/hr Documented by: Sodium Chloride (Normal Saline) 1,000 mls @ 25 mls/hr IV ASDIRECTED [facility] Last Admin: 12/21/19 14:30 Dose: 25 mls/hr Documented by: Ketamine HCl (Ketalar) 39 mg IV ASDIRECTED [facility] Lidocaine HCl (Xylocaine 2% Jelly) 10 ml MUCMEM ONETIME ONE Stop: 12/19/19 23:00 Last Admin: 12/19/19 23:41 Dose: 10 ml Documented by: Lidocaine/Epinephrine (Xylocaine 1% With Epinephrine 1:100,000) Confirm Administered Dose 50 ml .ROUTE .STK-MED ONE Stop: 12/19/19 06:47 Last Admin: 12/19/19 10:44 Dose: 20 ml Documented by: Linezolid (Zyvox) 600 mg IRR .STK-MED ONE Stop: 12/19/19 09:56 Last Admin: 12/19/19 09:55 Dose: 600 mg Documented by: Meropenem (Merrem) Confirm Administered Dose 500 mg .ROUTE .STK-MED ONE Stop: 12/19/19 06:46 Last Admin: 12/19/19 09:55 Dose: 500 mg Documented by: Naloxone HCl (Narcan) 0.04 mg IVPUSH Q3M PRN PRN Reason: Respiratory Depression Neostigmine Methylsulfate (Neostigmine) Confirm Administered Dose 5 mg .ROUTE .STK-MED ONE Stop: 12/19/19 07:41 Ondansetron HCl (Zofran) Confirm Administered Dose 4 mg .ROUTE .STK-MED ONE Stop: 12/19/19 07:41 Propofol (Diprivan 20 Ml) Confirm Administered Dose 200 mg .ROUTE .STK-MED ONE Stop: 12/19/19 07:41 Rocuronium [place] (Zemuron) Confirm Administered Dose 50 mg .ROUTE .STK-MED ONE Stop: 12/19/19 07:41 Scopolamine (Transderm-Scop) 1.5 mg TOP ONETIME ONE Stop: 12/19/19 08:21 Last Admin: 12/19/19 08:19 Dose: 1.5 mg Documented by: Succinylcholine Chloride (Quelicin) Confirm Administered Dose 200 mg .ROUTE .STK-MED ONE Stop: 12/19/19 07:41 Tamsulosin HCl (Flomax) 0.4 mg PO ONETIME ONE Stop: 12/20/19 08:31 Last Admin: 12/20/19 08:17 Dose: 0.4 mg Documented by: - Exam Quality Assessment: No: Supplemental Oxygen General: Alert, Oriented, Cooperative, No Acute Distress Lungs: Normal Respiratory Effort, Decreased Breath Sounds (mild both bases), Crackles (rare both bases). No: Wheezing Cardiovascular: Regular Rate, Regular Rhythm GI/Abdominal Exam: Normal Bowel Sounds, Soft, No Distention, Tender Extremities: No Pedal Edema Psy/Mental Status: Alert, Normal Affect Sepsis Event Note - Evaluation Sepsis Screening Result: No Definite Risk - Focused Exam Vital Signs: Vital Signs Temp Pulse Resp BP Pulse Ox 12/22/19 10:02 93 L 12/22/19 07:34 37.3 C 114 H 18 148/94 H 91 L 12/22/19 02:37 36.9 C 108 H 18 161/94 H 93 L Consult PN Assessment/Plan POD#: 3 Procedures: Procedures BLOOD TYPING SEROLOGIC ABO (11/03/16) BLOOD TYPING SEROLOGIC RH(D) (11/03/16) COMPLETE CBC W/AUTO DIFF WBC (11/27/16) COMPREHEN METABOLIC PANEL (11/27/16) CT ABD & PELVIS W/O CONTRAST (02/06/19) CT HEAD/BRAIN W/O DYE (11/27/16) EMERGENCY DEPT VISIT (02/06/19) EMERGENCY DEPT VISIT (11/27/16) EMERGENCY DEPT VISIT (08/05/14) HYDRATE IV INFUSION ADD-ON (02/06/19) POLYSOM 6/> YRS 4/> COMFORT (09/11/16) RBC ANTIBODY SCREEN (11/03/16) ROUTINE VENIPUNCTURE (11/27/16) THER/PROPH/DIAG INJ IV PUSH (02/06/19) TX/PRO/DX INJ NEW DRUG ADDON (02/06/19) URINALYSIS AUTO W/SCOPE (08/05/14) (1) Postoperative hypertension SNOMED Code(s): 6860955373303 Code(s): I97.3 - POSTPROCEDURAL HYPERTENSION Current Visit: Yes Problem List Initiated/Reviewed/Updated: Yes My Orders Last 24 Hours: My Active Orders 12/22/19 10:59 Convert IV to Saline Lock [OM.PC] Routine Plan: ASSESSMENT AND RECOMMENDATIONS- Postoperative hypertension-levels are stable to slightly improved with diuresis. Shortness of breath is better. Chest x-ray yesterday afternoon did not show significant edema or effusions. Patient reports that his blood pressure is very well controlled at home so I am reluctant to initiate any new medications at this time. -Furosemide x2 doses today per surgical team -Saline lock IV -No strong indication to start antihypertensives at this time Status post incisional hernia repair-pain fairly well controlled. He has bowel sounds but no return of bowel function as of yet. Chest x-ray yesterday did reveal a fair amount of gas in the small intestine concerning for ileus. -Postoperative care as per surgical team Status post gastric bypass surgery Pablo Ontiveros MD
--- NOTE | 2019-12-22 14:39 | PN ---
DATE OF SERVICE: 12/22/2019 The patient continued to be somewhat hypertensive yesterday and some sense of shortness of breath. Higher dose of Lasix was given per Dr. Ontiveros and this seemed to help. With significant diuresis, he is feeling somewhat better this morning. Blood pressure is still a little bit on the higher side. We will give him 2 additional doses of Lasix today. On the x-rays yesterday does appear to have ileus, and we backed down some sips of clear liquids. We will continue the bowel stimulation until bowels get going. Otherwise, he is requesting sleep aid at night, we will give him some Ambien p.r.n., and otherwise maximize activity and work with pulmonary toilet. Say Whitehead MD /[id number]
--- NOTE | 2019-12-22 15:05 | PN ---
DATE OF SERVICE: 12/21/2019 The patient has been afebrile with stable vital signs. Other than that, there was some hypertension and tachycardia last night that was probably related to pain. This morning, the blood pressure is 136/77, heart rate in the low 90s. He appears to be somewhat more comfortable. Continue the [employer]TERN [employer]ATOR today along with vistaril and Flexeril as needed. We will have him get in the shower and his Khan catheter came out, so we will need to watch to make sure he is able to begin passing urine adequately, and we will continue bowel stimulation as well. Say Whitehead MD /[id number]
[2019-12-22] MEDS ORDERED: Melatonin 3 MG Tab PO PRN (19:40)
[2019-12-22] MEDS: Tamsulosin 0.4 MG Cap.ER PO SCH (21:08)
[2019-12-23] MEDS: Acetaminophen 500 MG Tab PO SCH ×4 (04:15→21:37)
[2019-12-23] MEDS ORDERED: Furosemide 40 MG/4 ML VIAL IVPUSH ONE (07:30)
[2019-12-23] MEDS: Dextrose 5%-Lactated Ringers 1,000 ML IV SCH (08:38)
[2019-12-23] MEDS: Docusate Sodium 100 MG Cap PO SCH ×2 (08:40→20:22)
[2019-12-23] MEDS: Bisacodyl 5 MG Tab PO SCH ×2 (08:40→20:21)
[2019-12-23] MEDS: Potassium Chloride 20 MEQ, Lidocaine 1% 2 ML in Sodium Chloride 0.9% 100 ML IV SCH ×3 (08:42→14:18)
[2019-12-23] MEDS: Magnesium Sulfate/Water 2 GM in Premix Bag 1 BAG IV SCH ×3 (09:24→21:37)
[2019-12-23] MEDS: Pantoprazole 40 MG Vial IVPUSH SCH ×2 (09:24→21:38)
--- NOTE | 2019-12-23 10:57 | PN ---
DATE OF SERVICE: 12/23/2019 SUBJECTIVE: Nilton reports that he slept better last night after taking Ambien 5 mg. Pain comes and goes. He feels like he can feel gas moving inside, but he has not passed any flatus. REVIEW OF SYSTEMS: Remainder of review of systems negative for any pertinent positives and negatives. LABORATORY DATA: BNP is 598. Potassium 3.5. OBJECTIVE: GENERAL: Nilton Mclaughlin is a pleasant 59-year-old male. He is alert and orientated. Color pale. VITAL SIGNS: TPR at 07:20, 99.4; 113; 16; blood pressure is 139/89. HEENT: Negative. NECK: Supple. HEART: Regular rate and rhythm. LUNGS: Clear. ABDOMEN: Dressings dry and intact. Abdominal binder is on. EXTREMITIES: Without peripheral edema. ASSESSMENT: Exploratory laparotomy with: 1. Repair of incarcerated incisional hernia and incarcerated umbilical hernia with mesh. 2. Placement of Interceed mesh x2. POSTOPERATIVE DIAGNOSES: 1. Incarcerated incisional hernia. 2. Incarcerated umbilical hernia. 3. Extensive intraabdominal adhesions. 4. Date of surgical procedure: 12/19/2019. Surgeon: Say Whitehead MD. PLAN: 1. D5 LR 40 mL per hour. 2. Magnesium 2 g IV q.6 hours x72 hours. 3. KCl 60 mEq IV in 3 divided doses with lidocaine. 4. Lasix 40 mg IV. 5. Check CBC, CMP, BNP, and phosphorous in a.m. 6. Continue use of incentive spirometer. 7. We will evaluate p.r.n. or in a.m. Qing Hale PA-C /[id number]
--- NOTE | 2019-12-23 12:27 | PCM.CONSN ---
- General Info Date of Service: 12/23/19 Subjective Update: Mr. Mclaughlin is shown evidence of further improvement over the last 24 hours. He is remained off of supplemental oxygen and currently denies significant shortness of breath. He is tolerating clear liquid diet and has started to pass some gas. Functional Status: Reports: Tolerating Diet, Ambulating, Urinating - Review of Systems General: Reports: Weakness. Denies: Fever, Chills Pulmonary: Reports: No Symptoms Cardiovascular: Reports: No Symptoms Gastrointestinal: Reports: Abdominal Pain, Flatus. Denies: Constipation, Diarrhea, Difficulty Swallowing, Nausea, Vomiting - Patient Data Vitals - Most Recent: Last Vital Signs Temp 97.6 F 12/23/19 10:48 Pulse 114 H 12/23/19 10:48 Resp 16 12/23/19 10:48 BP 132/89 12/23/19 10:48 Pulse Ox 93 L 12/23/19 10:48 Weight - Most Recent: 188 lb I&O - Last 24 Hours: Intake & Output 12/22/19 12/23/19 12/23/19 22:59 06:59 14:59 Intake Total 560 Output Total 525 500 Balance -525 60 Lab Results Last 24 Hours: Laboratory Results - last 24 hr 12/23/19 12/23/19 Range/Units 05:35 05:35 WBC 7.0 (4.5-11.0) K/uL RBC 4.67 (4.30-5.90) M/uL Hgb 14.0 (12.0-15.0) g/dL Hct 41.4 (40.0-54.0) % MCV 89 (80-98) fL MCH 30 (27-31) pg MCHC 34 (32-36) % Plt Count 223 (150-400) K/uL Neut % (Auto) 67 H (36-66) % Lymph % (Auto) 14 L (24-44) % Prentiss % (Auto) 15 H (2-6) % Eos % (Auto) 4 (2-4) % Baso % (Auto) 0 (0-1) % Sodium 137 L (140-148) mmol/L Potassium 3.5 L (3.6-5.2) mmol/L Chloride 99 L (100-108) mmol/L Carbon Dioxide 28 (21-32) mmol/L Anion Gap 13.5 (5.0-14.0) mmol/L BUN 26 H D (7-18) mg/dL Creatinine 1.2 (0.8-1.3) mg/dL Est Cr Clr Drug Dosing 73.98 mL/min Estimated GFR (MDRD) > 60 (>60) Glucose 115 H (74-106) mg/dL Calcium 8.8 (8.5-10.1) mg/dL Phosphorus 3.3 (2.5-4.9) mg/dL Magnesium 1.7 L (1.8-2.4) mg/dL Total Bilirubin 0.8 (0.2-1.0) mg/dL AST 39 H (15-37) U/L ALT 36 (12-78) U/L Alkaline Phosphatase 89 (46-116) U/L NT-Pro-B Natriuret Pep 598 H (5-125) pg/mL Total Protein 6.6 (6.4-8.2) g/dL Albumin 2.9 L (3.4-5.0) g/dL Globulin 3.7 H (2.3-3.5) g/dL Albumin/Globulin Ratio 0.8 L (1.2-2.2) Med Orders - Current: Current Medications Acetaminophen (Tylenol Extra Strength) 1,000 mg PO Q6H [facility] Last Admin: 12/23/19 09:24 Dose: 1,000 mg Documented by: Bisacodyl (Dulcolax) 10 mg PO BID [facility] Last Admin: 12/23/19 08:40 Dose: 10 mg Documented by: Calcium Carbonate/Glycine (Tums) 500 mg PO Q2H PRN PRN Reason: Indigestion Cyclobenzaprine HCl (Flexeril) 10 mg PO Q6H PRN PRN Reason: MUSCLE SPASM Last Admin: 12/22/19 05:40 Dose: 10 mg Documented by: Docusate Sodium (Colace) 100 mg PO BID [facility] Last Admin: 12/23/19 08:40 Dose: 100 mg Documented by: Hydroxyzine HCl (Vistaril) 100 mg IM Q4H PRN PRN Reason: PAIN Dextrose/Lactated Ringer's (Dextrose 5%-Lactated Ringers) 1,000 mls @ 40 mls/hr IV ASDIRECTED [facility] Last Admin: 12/23/19 08:38 Dose: 40 mls/hr Documented by: Magnesium Sulfate 2 gm/ Premix 50 mls @ 25 mls/hr IV Q6H [facility] Stop: 12/26/19 05:59 Last Admin: 12/23/19 09:24 Dose: 25 mls/hr Documented by: Potassium Chloride 20 meq/Lidocaine HCl 2 ml/ Sodium Chloride 112 mls @ 56 mls/hr IV Q2H [facility] Stop: 12/23/19 14:59 Last Admin: 12/23/19 12:13 Dose: 56 mls/hr Documented by: Labetalol HCl (Normodyne) 5 - 10 mg IVPUSH ASDIRECTED PRN PRN Reason: high bp Last Admin: 12/21/19 12:27 Dose: 10 mg Documented by: Melatonin (Melatonin) 9 mg PO BEDTIME PRN PRN Reason: Insomnia Ondansetron HCl (Zofran) 4 mg IVPUSH Q6H PRN PRN Reason: Nausea/Vomiting Last Admin: 12/20/19 23:42 Dose: 4 mg Documented by: Ondansetron HCl (Zofran Odt) 4 mg PO Q4H PRN PRN Reason: Nausea/Vomiting Last Admin: 12/21/19 18:44 Dose: 4 mg Documented by: Oxycodone HCl (Oxycodone) 5 - 10 mg PO Q4H PRN PRN Reason: Pain (moderate 4-6) Last Admin: 12/22/19 02:41 Dose: 5 mg Documented by: Pantoprazole Sodium (Protonix Iv) 40 mg IVPUSH Q12H [facility] Last Admin: 12/23/19 09:24 Dose: 40 mg Documented by: Tamsulosin HCl (Flomax) 0.4 mg PO BEDTIME [facility] Last Admin: 12/22/19 21:08 Dose: 0.4 mg Documented by: Zolpidem Tartrate (Ambien) 5 mg PO BEDTIME PRN PRN Reason: SLEEP Last Admin: 12/22/19 21:08 Dose: 5 mg Documented by: Discontinued Medications Acetaminophen (Tylenol Extra Strength) 1,000 mg PO ONETIME ONE Stop: 12/19/19 07:46 Last Admin: 12/19/19 08:19 Dose: 1,000 mg Documented by: Bupivacaine HCl (Marcaine 0.5%) Confirm Administered Dose 50 ml .ROUTE .STK-MED ONE Stop: 12/19/19 06:46 Last Admin: 12/19/19 10:44 Dose: 20 ml Documented by: Ropivacaine 44 ml/Dexamethasone 8 mg/Epinephrine HCl 0.4 mg/ Sodium Chloride 33.6 ml 0 ml NERVRT ASDIRECTED [facility] Last Admin: 12/19/19 10:12 Dose: 80 syringe Documented by: Dexamethasone (Dexamethasone) Confirm Administered Dose 4 mg .ROUTE .STK-MED ONE Stop: 12/19/19 07:41 Diphenhydramine HCl (Benadryl) 25 mg IVPUSH Q6H PRN PRN Reason: Itching Diphenhydramine HCl (Benadryl) 25 mg PO Q6H PRN PRN Reason: Itching Fentanyl (Sublimaze) Confirm Administered Dose 250 mcg .ROUTE .STK-MED ONE Stop: 12/19/19 07:44 Fentanyl (Sublimaze) Confirm Administered Dose 250 mcg .ROUTE .[facility] ONE Stop: 12/19/19 09:52 Furosemide (Lasix) 20 mg IVPUSH ONETIME ONE Stop: 12/20/19 16:31 Last Admin: 12/20/19 16:44 Dose: 20 mg Documented by: Furosemide (Lasix) 40 mg IVPUSH ONETIME ONE Stop: 12/21/19 14:31 Last Admin: 12/21/19 14:30 Dose: 40 mg Documented by: Furosemide (Lasix) 20 mg IVPUSH Q6H [facility] Stop: 12/22/19 14:01 Last Admin: 12/22/19 15:24 Dose: 20 mg Documented by: Furosemide (Lasix) 40 mg IVPUSH ONETIME ONE Stop: 12/23/19 07:31 Last Admin: 12/23/19 08:40 Dose: 40 mg Documented by: Glycopyrrolate (Robinul) Confirm Administered Dose 1 mg .ROUTE .STK-MED ONE Stop: 12/19/19 07:41 Hydromorphone HCl (Dilaudid Pulmonary Disease Specialist 15 Mg In Ns 30 Ml) 0 mg IV ASDIRECTED PRN; Protocol PRN Reason: Pain Last Admin: 12/20/19 19:53 Dose: 15 mg Documented by: Ketamine HCl 50 mg/ Sodium (Chloride) 50 mls @ 23.7 mls/hr IV ASDIRECTED [facility] Cefazolin Sodium/Dextrose 2 gm (/ Premix) 50 mls @ 100 mls/hr IV ONETIME ONE Stop: 12/19/19 09:44 Last Admin: 12/19/19 09:21 Dose: 100 mls/hr Documented by: Dextrose/Lactated Ringer's (Dextrose 5%-Lactated Ringers) 1,000 mls @ 100 mls/hr IV ASDIRECTED [facility] Lactated Ringer's (Ringers, Lactated) Confirm Administered Dose 1,000 mls @ as directed .ROUTE .STK-MED ONE Stop: 12/19/19 09:55 Dextrose/Lactated Ringer's (Dextrose 5%-Lactated Ringers) 1,000 mls @ 175 mls/hr IV ASDIRECTED [facility] Last Admin: 12/20/19 06:09 Dose: 175 mls/hr Documented by: Cefazolin Sodium/Dextrose 2 gm (/ Premix) 50 mls @ 100 mls/hr IV Q8H [facility] Stop: 12/20/19 10:29 Last Admin: 12/20/19 09:33 Dose: 100 mls/hr Documented by: Dextrose/Lactated Ringer's (Dextrose 5%-Lactated Ringers) 1,000 mls @ 100 mls/hr IV ASDIRECTED [facility] Last Admin: 12/20/19 23:37 Dose: 100 mls/hr Documented by: Sodium Chloride (Normal Saline) 1,000 mls @ 25 mls/hr IV ASDIRECTED [facility] Last Admin: 12/21/19 14:30 Dose: 25 mls/hr Documented by: Ketamine HCl (Ketalar) 39 mg IV ASDIRECTED [facility] Lidocaine HCl (Xylocaine 2% Jelly) 10 ml MUCMEM ONETIME ONE Stop: 12/19/19 23:00 Last Admin: 12/19/19 23:41 Dose: 10 ml Documented by: Lidocaine/Epinephrine (Xylocaine 1% With Epinephrine 1:100,000) Confirm Administered Dose 50 ml .ROUTE .STK-MED ONE Stop: 12/19/19 06:47 Last Admin: 12/19/19 10:44 Dose: 20 ml Documented by: Linezolid (Zyvox) 600 mg IRR .STK-MED ONE Stop: 12/19/19 09:56 Last Admin: 12/19/19 09:55 Dose: 600 mg Documented by: Meropenem (Merrem) Confirm Administered Dose 500 mg .ROUTE .STK-MED ONE Stop: 12/19/19 06:46 Last Admin: 12/19/19 09:55 Dose: 500 mg Documented by: Naloxone HCl (Narcan) 0.04 mg IVPUSH Q3M PRN PRN Reason: Respiratory Depression Neostigmine Methylsulfate (Neostigmine) Confirm Administered Dose 5 mg .ROUTE .STK-MED ONE Stop: 12/19/19 07:41 Ondansetron HCl (Zofran) Confirm Administered Dose 4 mg .ROUTE .STK-MED ONE Stop: 12/19/19 07:41 Propofol (Diprivan 20 Ml) Confirm Administered Dose 200 mg .ROUTE .STK-MED ONE Stop: 12/19/19 07:41 Rocuronium Nye (Zemuron) Confirm Administered Dose 50 mg .ROUTE .STK-MED ONE Stop: 12/19/19 07:41 Scopolamine (Transderm-Scop) 1.5 mg TOP ONETIME ONE Stop: 12/19/19 08:21 Last Admin: 12/19/19 08:19 Dose: 1.5 mg Documented by: Succinylcholine Chloride (Quelicin) Confirm Administered Dose 200 mg .ROUTE .STK-MED ONE Stop: 12/19/19 07:41 Tamsulosin HCl (Flomax) 0.4 mg PO ONETIME ONE Stop: 12/20/19 08:31 Last Admin: 12/20/19 08:17 Dose: 0.4 mg Documented by: - Exam Quality Assessment: DVT Prophylaxis General: Alert, Oriented, Cooperative, Mild Distress Lungs: Clear to Auscultation, Normal Respiratory Effort Cardiovascular: Regular Rate, Regular Rhythm, No Murmurs GI/Abdominal Exam: Soft, No Organomegaly, No Distention, Tender. No: Guarding, Rigid, Rebound Extremities: Non-Tender, No Pedal Edema Sepsis Event Note - Evaluation Sepsis Screening Result: No Definite Risk - Focused Exam Vital Signs: Vital Signs Temp Pulse Resp BP Pulse Ox 12/23/19 10:48 97.6 F 114 H 16 132/89 93 L 12/23/19 07:20 99.4 F 113 H 16 139/89 94 L 12/23/19 04:15 98.4 F 108 H 159/102 H Consult PN Assessment/Plan Procedures: Procedures BLOOD TYPING SEROLOGIC ABO (11/03/16) BLOOD TYPING SEROLOGIC RH(D) (11/03/16) COMPLETE CBC W/AUTO DIFF WBC (11/27/16) COMPREHEN METABOLIC PANEL (11/27/16) CT ABD & PELVIS W/O CONTRAST (02/06/19) CT HEAD/BRAIN W/O DYE (11/27/16) EMERGENCY DEPT VISIT (02/06/19) EMERGENCY DEPT VISIT (11/27/16) EMERGENCY DEPT VISIT (08/05/14) HYDRATE IV INFUSION ADD-ON (02/06/19) POLYSOM 6/> YRS 4/> COMFORT (09/11/16) RBC ANTIBODY SCREEN (11/03/16) ROUTINE VENIPUNCTURE (11/27/16) THER/PROPH/DIAG INJ IV PUSH (02/06/19) TX/PRO/DX INJ NEW DRUG ADDON (02/06/19) URINALYSIS AUTO W/SCOPE (08/05/14) Problem List Initiated/Reviewed/Updated: Yes Plan: ASSESSMENT AND RECOMMENDATIONS- Postoperative hypertension-levels are stable to slightly improved with diuresis. Shortness of breath has essentially resolved with diuresis -Furosemide today per surgical team -Saline lock IV -No strong indication to start antihypertensives at this time Status post incisional hernia repair-pain fairly well controlled. This seems to be resolving, he has started to pass some gas and is tolerating a clear liquid diet -Postoperative care as per surgical team Status post gastric bypass surgery
[2019-12-23] MEDS: oxyCODONE 5 MG Tab PO PRN (16:16)
[2019-12-23] MEDS: Tamsulosin 0.4 MG Cap.ER PO SCH (20:21)
[2019-12-24] MEDS: Magnesium Sulfate/Water 2 GM in Premix Bag 1 BAG IV SCH ×2 (04:21→08:59)
[2019-12-24] MEDS: Acetaminophen 500 MG Tab PO SCH ×2 (04:22→09:02)
[2019-12-24] MEDS: Dextrose 5%-Lactated Ringers 1,000 ML IV SCH (07:31)
[2019-12-24] MEDS ORDERED: Magnesium Hydroxide 400 MG/5 ML Susp 30 ML Cup PO PRN (07:35)
[2019-12-24] MEDS: Bisacodyl 5 MG Tab PO SCH (08:56)
[2019-12-24] MEDS: Docusate Sodium 100 MG Cap PO SCH (08:56)
[2019-12-24] MEDS: Potassium Phos in 0.9 % NaCl 15 MMOL in Premix Bag 1 BAG IV SCH ×6 (08:58→13:28)
[2019-12-24] MEDS: Pantoprazole 40 MG Vial IVPUSH SCH (09:00)
[2019-12-24] MEDS ORDERED: Magnesium Hydroxide 400 MG/5 ML Susp 30 ML Cup PO ONE (09:00)
[2019-12-24 11:04] VITALS: BP 145/90; PULSE 91
--- NOTE | 2019-12-27 11:16 | DISCH ---
FINAL DIAGNOSES: 1. Incarcerated incisional hernia. 2. Incarcerated umbilical hernia. 3. Extensive intraabdominal adhesions. OPERATIVE PROCEDURE: Exploratory laparotomy with: 1. Repair of incarcerated incisional hernia with mesh. 2. Repair of incarcerated umbilical hernia with mesh. 3. Placement of Interceed mesh x2 to limit recurrent adhesion formation between pelvic and abdominal wall and underlying viscera. SUMMARY: This is a 59-year-old male presenting with increasing symptomatic incisional hernia which recurred during work accident. On the day of admission, the patient underwent a repair of the hernia. He also was noted to have a separate umbilical hernia adjacent to it, which contained some incarcerated omentum as well as the colon which was incarcerated along with omentum and the incisional hernia. Postoperatively, the patient had protracted problems with ileus today due to moving bowels and is tolerating diet. He is off any pain medicine at this point including Tylenol. He will be on his usual home medications. Otherwise, followup with Dr. Whitehead at [facility] will be on 01/01/2020.
--- NOTE | 2019-12-27 16:46 | PN ---
DATE OF SERVICE: 12/24/2019 The patient has been afebrile with stable vital signs. No bowel movement as of yet, but he is passing some gas. We will give him some additional milk of magnesia including the other bowel stimulation today. I think he has diuresed fairly well. BNP is down from 598 to 277. Potassium marginally low, we will give him some K-Phos this morning. He will be ready for discharge home once his bowels get going. Say Whitehead MD /[id number]
--- NOTE | 2019-12-31 14:18 | OR ---
DATE OF PROCEDURE: 12/19/2019 SURGEON: Say Whitehead MD PREOPERATIVE DIAGNOSIS: Incisional hernia. POSTOPERATIVE DIAGNOSES: 1. Incarcerated incisional hernia. 2. Incarcerated adjacent umbilical hernia. 3. Extensive intraabdominal adhesions. OPERATIVE PROCEDURES: Exploratory laparotomy with: 1. Repair of incarcerated incisional hernia with mesh (63596, [id number]). 2. Repair of incarcerated umbilical hernia (36104). 3. Placement of Interceed mesh x2 to limit adhesion formation between mesh and adjacent abdominal pelvic jones and underlying viscera (55719). ANESTHESIA: General. PANTOGRAPH I ENGRAVER: Qing Hale PA-C INDICATIONS FOR PROCEDURE: This is a 59-year-old white male who recently sustained an incisional hernia related to a work-related accident. The plan is to proceed with exploratory laparotomy with repair of the hernia and with other procedures as indicated based on operative findings, potential risks of the procedure including bleeding, infection, injury to underlying viscera, problems with the hernia recurring or the mesh becoming infected as well as remote possible cardiopulmonary, septic, or hemorrhagic complications leading to were discussed and the patient wishes to proceed. DETAILS OF PROCEDURE: The patient was taken to the operating room and placed in a supine position after general endotracheal anesthesia was induced, Khan catheter was inserted and the abdomen prepped and draped. Previous upper midline incision from the umbilicus roughly handsbreadth towards the xiphoid was made and carried down through the skin and subcutaneous tissue. The hernia sac was encountered at that level and dissected down to the level of fascia circumferentially. The hernia sac was then opened and was noted to have some incarcerated omentum and transverse colon. These were dissected away from the hernia sac using combination of blunt and cautery dissection. The hernia sac was then excised and flushed with the fascial edge. The patient below that was noted to have a small incarcerated umbilical hernia which contained some omentum. This was reduced in that peritoneal area and excised as well. The fascial defect was quite large and vertically wide in the transverse orientation. The area was mapped out and the Ventrio ST hernia patch measuring 19.6 cm x 24.6 cm was selected. The forces on this case on the abdominal wall would be such that recurrence would tend to occur in the lateral direction. Given this, the mesh was eventually oriented with the long axis in the transverse orientation roughly 5 cm intervals around its circumference. 2-0 Vicryl sutures were placed on the polypropylene side of the mesh and stab wounds were then placed in the abdominal wall though the suture will be pulled up thus fixing the mesh well away from the incisional and umbilical hernia at the fascial defect. Once these were sutured in place, the mesh was soaked in a combination of Zyvox and meropenem-containing saline solution. The mesh was then placed into the peritoneal cavity and the left side of the sutures were then placed and pulled up to avoid problems with dense adhesion formation between the mesh and adjacent abdominal pelvic wall. Two Interceed meshes were placed underlying those areas, and at that point, the remaining sutures were pulled up thus fixing the mesh in general position on the underlying shelf. Titanium tacking screws were then placed circumferentially on the mesh to the abdominal wall and the area was once again irrigated with antibiotic-containing saline solution. No further problems were noted. The midline fascia was then approximated with #2 Vicryl stitch and the subcutaneous tissue with 2 layers of 3-0 and 4-0 Vicryl stitch deep and tiffani for the skin. Dressing applied. The patient was taken to the recovery room in satisfactory condition. Prior to closure, bilateral transversus abdominis plane blocks were placed and this area was also anesthetized with 1% lidocaine mixed with Marcaine. Physician optometric assistant, Qing Hale, played an essential role in assisting in this case helping to position the patient, retract structures as needed as well as suturing and cutting sutures when indicated. Her presence improved patient safety and decreased operative time. Say Whitehead MD /[id number]
== END 2019-12-24 17:40 | disposition home or self-care (01) | DRG 354 ==
LOC: JP.SDS 07:43 → EDSTATUS 11:45 → JP.SDSSCHI 12:28 → JP.MS 12:29
PROVIDERS: ADMIT Surgery; ATTEND Surgery
PROC: 0WUF0JZ Supplement Abdominal Wall with Synthetic Substitute, Open Approach (ICD-10-PCS; principal; 2019-12-19)
PROC: 0WQF0ZZ Repair Abdominal Wall, Open Approach (ICD-10-PCS; 2019-12-19)
PROC: 3E0M05Z Introduction of Adhesion Barrier into Peritoneal Cavity, Open Approach (ICD-10-PCS; 2019-12-19)
DX: K43.0 Incisional hernia with obstruction, without gangrene (principal); K56.7 Ileus, unspecified; K42.0 Umbilical hernia with obstruction, without gangrene; E11.9 Type 2 diabetes mellitus without complications; I10 Essential (primary) hypertension; G47.33 Obstructive sleep apnea (adult) (pediatric); E66.9 Obesity, unspecified; E78.5 Hyperlipidemia, unspecified; I97.3 Postprocedural hypertension; E78.00 Pure hypercholesterolemia, unspecified; J34.2 Deviated nasal septum; K21.9 Gastro-esophageal reflux disease without esophagitis; D50.9 Iron deficiency anemia, unspecified; Z96.0 Presence of urogenital implants; Z86.73 Personal history of transient ischemic attack (TIA), and cerebral infarction without residual deficits; Z98.890 Other specified postprocedural states; Z98.84 Bariatric surgery status; Z90.49 Acquired absence of other specified parts of digestive tract; Z79.82 Long term (current) use of aspirin; Z79.899 Other long term (current) drug therapy; Z87.891 Personal history of nicotine dependence; Z88.8 Allergy status to other drugs, medicaments and biological substances; Z88.6 Allergy status to analgesic agent; Z87.442 Personal history of urinary calculi; Z85.828 Personal history of other malignant neoplasm of skin; Z98.49 Cataract extraction status, unspecified eye; K66.0 Peritoneal adhesions (postprocedural) (postinfection); Z68.24 Body mass index [BMI] 24.0-24.9, adult
CPT/HCPCS: 36415; 51702; 71045; 80053; 82728; 83735; 83880; 84100; 85025; 85027; 88302; 94762; A9270-GY; C1713; C1781; C9113; J0171; J0330; J0690; J1100; J1170; J1940; J2001; J2020; J2185; J2405; J2704; J2710; J2795; J3010; J3475; J3480; J3490; J7030; J7050; J7120; J7121

== ENCOUNTER 2020-01-09 14:07 | Emergency (ER) | payer OTHER ==
[2020-01-09 14:19] VITALS: BP 133/90; PULSE 103
--- NOTE | 2020-01-09 14:46 | EDM.PDOC ---
ED HPI GENERAL MEDICAL PROBLEM - General Chief Complaint: Abdominal Pain Stated Complaint: PAIN POST SURGERY Time Seen by Provider: 01/09/20 14:42 Source of Information: Reports: Patient, Family, RN Notes Reviewed History Limitations: Reports: No Limitations - History of Present Illness INITIAL COMMENTS - FREE TEXT/NARRATIVE: 59-year-old gentleman presents emergency department a complaint of abdominal pain, he states he is about 3 weeks out from a hernia repair midline abdominal incision, he states that he has been having problems with his bowel movements somewhat constipated but this morning he had very intense pain doubled him over no nausea vomiting no shortness of breath however the pain is now completely resolved - Related Data Allergies Allergy/AdvReac Type Severity Reaction Status Date / Time ketorolac [From Toradol] Allergy Rash Verified 01/09/20 14:28 Rtsyzri-Buh-Myv Reductase Allergy Muscle Verified 01/09/20 14:28 Inhibitor Aches tromethamine Allergy Rash Verified 01/09/20 14:28 Home Meds: Home Meds Aspirin 81 mg PO DAILY 02/06/19 [History] Cyanocobalamin (Vitamin B-12) [Vitamin B-12] 2,000 mg PO DAILY 02/06/19 [History] Thiamine HCl [Vitamin B-1] 100 mg PO DAILY 02/06/19 [History] Zinc Gluconate [Zinc] 50 mg PO DAILY 02/06/19 [History] Cholecalciferol (Vitamin D3) [Vitamin D] 5,000 units PO DAILY 12/16/19 [History] Multivitamin [Multiple Vitamins] 1 tab PO BID 12/16/19 [History] Tamsulosin HCl [Flomax] 0.4 mg PO DAILY 12/16/19 [History] Potassium Gluconate [Potassium] 600 mg PO DAILY 12/19/19 [History] Magnesium 200 mg PO BEDTIME 01/09/20 [History] Past Medical History HEENT History: Reports: Other (See Below) Other HEENT History: deviated septum Cardiovascular History: Reports: High Cholesterol, Hypertension Respiratory History: Reports: Sleep Apnea Gastrointestinal History: Reports: Bowel Obstruction, GERD, Other (See Below) Other Gastrointestinal History: incsisional hernia Genitourinary History: Reports: Renal Calculus Musculoskeletal History: Reports: Arthritis, Fracture, Other (See Below) Other Musculoskeletal History: right ankle fracture Neurological History: Reports: TIA Other Neuro History: 11/2016 Endocrine/Metabolic History: Reports: Diabetes, Type II, Obesity/BMI 30+ Hematologic History: Reports: Iron Deficiency Oncologic (Cancer) History: Reports: Basal Cell Carcinoma Dermatologic History: Reports: Other (See Below) Other Dermatologic History: basal cell CA - Infectious Disease History Infectious Disease History: Reports: Chicken Pox, Measles, Mumps, Shingles - Past Surgical History Head Surgeries/Procedures: Reports: None HEENT Surgical History: Reports: Cataract Surgery, Eye Surgery Cardiovascular Surgical History: Reports: None Respiratory Surgical History: Reports: None GI Surgical History: Reports: Appendectomy, Bariatric Procedure, EGD, Other (See Below) Other GI Surgeries/Procedures: bowel obstruction Male Surgical History: Reports: Lithotripsy ([facility]), Ureteral Stent Endocrine Surgical History: Reports: None Neurological Surgical History: Reports: None Musculoskeletal Surgical History: Reports: Arthroscopic Knee, Shoulder Surgery, Other (See Below) Other Musculoskeletal Surgeries/Procedures:: ankle surgery Oncologic Surgical History: Reports: None Dermatological Surgical History: Reports: Skin Biopsy Social & Family History - Family History Family Medical History: Noncontributory - Tobacco Use Smoking Status *Q: Current Every Day Smoker Years of Tobacco use: 40 Packs/Tins Daily: 0.2 - Caffeine Use Caffeine Use: Reports: Coffee ED ROS GENERAL - Review of Systems Review Of Systems: See Below Constitutional: Reports: No Symptoms Respiratory: Reports: No Symptoms Cardiovascular: Reports: No Symptoms GI/Abdominal: Reports: Abdominal Pain, Constipation, Flatus. Denies: Nausea, Vomiting ED EXAM, GI/ABD - Physical Exam Exam: See Below Exam Limited By: No Limitations General Appearance: Alert, WD/WN, No Apparent Distress Respiratory/Chest: No Respiratory Distress GI/Abdominal Exam: Normal Bowel Sounds, Soft, Non-Tender, No Organomegaly, No Distention, No Abnormal Bruit, Other (Surgical wound clean dry and intact) Course - Vital Signs Last Recorded V/S: Last Vital Signs Temp 98.8 F 01/09/20 14:30 Pulse 103 H 01/09/20 14:30 Resp 16 01/09/20 14:30 BP 133/90 01/09/20 14:30 Pulse Ox 97 01/09/20 14:30 - Orders/Labs/Meds Orders: Active Orders 24 hr Category Date Time Status Abdomen 1V Upright [CR] Stat Exams 01/09/20 14:44 Taken Departure - Departure Time of Disposition: 15:18 Disposition: Home, Self-Care 01 Condition: Fair Clinical Impression: Functional constipation - Discharge Information Instructions: Constipation, Adult, [id number] Referrals: PCP,None [Primary Care Provider] - Forms: ED Department Discharge Additional Instructions: Try the colonoscopy prep at home, please followup with your primary care provider in 3-5 days if not better, please call return to the emergency department with worsening of symptoms. Sepsis Event Note (ED) - Evaluation Sepsis Screening Result: No Definite Risk - Focused Exam Vital Signs: Vital Signs Temp Pulse Resp BP Pulse Ox 01/09/20 14:30 98.8 F 103 H 16 133/90 97 01/09/20 14:18 98.8 F 103 H 16 133/90 97 - My Orders Last 24 Hours: My Active Orders 01/09/20 14:44 Abdomen 1V Upright [CR] Stat - Assessment/Plan Last 24 Hours: My Active Orders 01/09/20 14:44 Abdomen 1V Upright [CR] Stat Plan: Assessment Acuity = acute Site and laterality = functional constipation Etiology = slow transit time Manifestations = intermittent abdominal pain Location of injury = Home Lab values = plain film shows large amount of stool and gas official read radiology pending Plan Plan is to try the colonoscopy prep at home follow-up primary care 3 to 5 days if not better This note was dictated using [employer] voice recognition software please call with any questions on syntax or grammar.
--- NOTE | 2020-01-09 15:18 | CR ---
Abdomen 1V Upright CLINICAL HISTORY: Abdominal pain FINDINGS: No free air is identified. Patient has had previous ventral hernia repair. Small intestinal configuration is nonacute. There is a possibly of gas filled bowel loops in the midabdomen near the ventral hernia repair. There is some generalized increased density. Some of this may be due to fluid-filled bowel loops. There is moderate retained feces throughout the colon. IMPRESSION: Questionable displacement of small bowel loops from the mid abdomen. Mass or fluid collection is not excluded. Clinical correlation necessary Moderate fecal retention
== END 2020-01-09 15:31 | disposition home or self-care (01) ==
LOC: JP.ED 14:07
DX: K59.00 Constipation, unspecified (principal); I10 Essential (primary) hypertension; E11.9 Type 2 diabetes mellitus without complications; E66.9 Obesity, unspecified; F17.210 Nicotine dependence, cigarettes, uncomplicated; Z88.6 Allergy status to analgesic agent; Z88.8 Allergy status to other drugs, medicaments and biological substances; Z79.82 Long term (current) use of aspirin; Z79.899 Other long term (current) drug therapy; Z90.49 Acquired absence of other specified parts of digestive tract; Z68.24 Body mass index [BMI] 24.0-24.9, adult
CPT/HCPCS: 74018; 74018-26; 99282; 99284

== ENCOUNTER 2025-01-06 03:43 | Emergency (ER) | payer BC ==
[2025-01-06 04:38] LABS: BASOPHILS ABSOLUTE AUTO 0.06 K/uL (0.00-0.10); BASOPHILS PERCENT AUTO 0.6 % (0.1-1.3); EOSINOPHILS ABSOLUTE AUTO 0.33 K/uL (0.00-0.40); EOSINOPHILS PERCENT AUTO 3.2 % (0.0-5.4); IMMATURE GRAN ABSOLUTE AUTO 0.03 K/uL (0.00-0.23); IMMATURE GRAN PERCENT AUTO 0.3 % (0.0-0.7); LYMPHOCYTES ABSOLUTE AUTO 1.05 K/uL (0.8-3.3); LYMPHOCYTES PERCENT AUTO 10.2 % (11.4-47.7); MONOCYTES ABSOLUTE AUTO 0.77 K/uL (0.20-0.90); MONOCYTES PERCENT AUTO 7.5 % (3.3-12.6); NEUTROPHILS ABSOLUTE AUTO 8.01 K/uL (1.0-7.6); NEUTROPHILS PERCENT AUTO 78.2 % (40.0-78.1); PLATELET COUNT,PLT 274 K/uL (130-375); RED BLOOD CELL COUNT 4.33 M/uL (4.14-5.76); WHITE BLOOD CELL COUNT,WBC 10.3 K/uL (3.2-11.0)
[2025-01-06 04:57] LABS: A/G RATIO 0.8 (1.2-2.2); ALANINE AMINOTRANSFERASE,ALT 24 U/L (12-78); ASPARTATE AMNIOTRANSFERASE,AST 27 U/L (15-37); BILIRUBIN TOTAL 0.7 mg/dL (0.2-1.0); BLOOD UREA NITROGEN,BUN 17 mg/dL (7-18); CARBON DIOXIDE,CO2 25 mmol/L (21-32); CHLORIDE,CL 106 mmol/L (100-108); CREATININE 0.9 mg/dL (0.8-1.3); EST CRCL DRUG DOSING (CG) 89.81 mL/min; ESTIMATED GFR 95 mL/min (>60); GLUCOSE RANDOM 106 mg/dL (74-106); POTASSIUM,K 4.1 mmol/L (3.6-5.2); PROTEIN TOTAL,TP 7.1 g/dL (6.4-8.2); SODIUM,NA 140 mmol/L (140-148); TROPONIN I HIGH SENSITIVITY 13.5 pg/mL (<=60.3)
[2025-01-06 05:00] LABS: LACTIC ACID 0.6 mmol/L (0.4-2.0)
[2025-01-06] MEDS: Iopamidol 755 Mg/ML 100 ML Bottle IV SCH (06:00)
[2025-01-06] MEDS: Sodium Chloride 0.9% 10 ML Syringe FLUSH ONE (06:00)
[2025-01-06 06:34] VITALS: BP 162/92; PULSE 77
== END 2025-01-06 06:34 | disposition home or self-care (01) ==
LOC: JP.ED 03:43
DX: J06.9 Acute upper respiratory infection, unspecified (principal); B97.89 Other viral agents as the cause of diseases classified elsewhere; I10 Essential (primary) hypertension; M19.90 Unspecified osteoarthritis, unspecified site; F17.200 Nicotine dependence, unspecified, uncomplicated; Z79.899 Other long term (current) drug therapy; Z79.82 Long term (current) use of aspirin; Z90.49 Acquired absence of other specified parts of digestive tract
CPT/HCPCS: 36415; 71046; 71275; 80053; 83605; 84484; 85025; 85379; 86140; 87635; 99284; Q9967; U0002

== ENCOUNTER 2025-01-12 16:11 | Inpatient (IN) | payer BC ==
[2025-01-12] MEDS ORDERED: Lactated Ringers 1,000 ML IV SCH (17:15)
[2025-01-12 17:35] LABS: PLATELET COUNT,PLT 233 K/uL (130-375); RED BLOOD CELL COUNT 4.02 M/uL (4.14-5.76); WHITE BLOOD CELL COUNT,WBC 15.6 K/uL (3.2-11.0)
[2025-01-12] MEDS: cefTRIAXone 2 GM AdvVial IV ONE (17:50)
[2025-01-12 17:51] LABS: BAND ABSOLUTE MAN 4.52 K/uL; BAND PERCENT MAN 29 % (5-11); LYMPHOCYTES ABSOLUTE MAN 1.09 K/uL (0.8-3.3); LYMPHOCYTES PERCENT MAN 7 % (24-44); MONOCYTES ABSOLUTE MAN 0.47 K/uL (0.20-0.90); MONOCYTES PERCENT MAN 3 % (2-6); NEUTROPHILS ABSOLUTE MAN 9.52 K/uL (1.0-7.6); SEG NEUTROPHILS PERCENT MAN 61 % (36-66)
[2025-01-12 18:01] LABS: A/G RATIO 0.6 (1.2-2.2); ALANINE AMINOTRANSFERASE,ALT 23 U/L (12-78); ASPARTATE AMNIOTRANSFERASE,AST 21 U/L (15-37); BILIRUBIN TOTAL 0.6 mg/dL (0.2-1.0); BLOOD UREA NITROGEN,BUN 37 mg/dL (7-18); CARBON DIOXIDE,CO2 23 mmol/L (21-32); CHLORIDE,CL 105 mmol/L (100-108); CREATININE 1.5 mg/dL (0.8-1.3); EST CRCL DRUG DOSING (CG) 53.89 mL/min; ESTIMATED GFR 51 mL/min (>60); GLUCOSE RANDOM 122 mg/dL (74-106); POTASSIUM,K 3.8 mmol/L (3.6-5.2); PROTEIN TOTAL,TP 6.5 g/dL (6.4-8.2); SODIUM,NA 138 mmol/L (140-148)
[2025-01-12 18:02] LABS: LACTIC ACID 1.6 mmol/L (0.4-2.0)
[2025-01-12 18:38] LABS: CORONAVIRUS COVID-19 NAA NEGATIVE (NEGATIVE); INFLUENZA A NAA NEGATIVE (NEGATIVE); INFLUENZA B NAA NEGATIVE (NEGATIVE); RESPIRATORY SYNCYTIAL VIR NAA NEGATIVE (NEGATIVE)
[2025-01-12] MEDS: fentaNYL 100 MCG/2 ML SDV IVPUSH ONE (19:07)
[2025-01-12] MEDS ORDERED: Ondansetron 4 MG/2 ML SDV IV PRN (20:05)
[2025-01-12] MEDS ORDERED: LORazepam 2 MG/ML SDV IVPUSH PRN (20:05)
[2025-01-12] MEDS ORDERED: Albuterol 0.083% 2.5 MG/3 ML Neb Soln NEB PRN (20:05)
[2025-01-12] MEDS ORDERED: Sennosides/Docusate Sodium 50-8.6 MG Tab PO PRN (20:05)
[2025-01-12] MEDS ORDERED: Ondansetron 4 MG Tab.DIS PO PRN (20:05)
[2025-01-12] MEDS: Lactobacillus Rhamnosus GG (Probiotic) Cap PO SCH (20:26)
[2025-01-13] MEDS: Acetaminophen/Caffeine 500-65 MG Tab PO ONE (03:46)
[2025-01-13] MEDS: Acetaminophen/Caffeine 500-65 MG Tab ONE (03:52)
[2025-01-13 03:53] LABS: APPEARANCE,URINE CLEAR (CLEAR); GLUCOSE,URINE NEGATIVE (NEGATIVE); OCCULT BLOOD,URINE NEGATIVE (NEGATIVE)
[2025-01-13 03:56] LABS: SQUAMOUS EPITHELIAL CELLS,UR RARE /HPF
[2025-01-13 03:57] LABS: UROTHELIAL CELLS,URINE NOT SEEN /HPF
[2025-01-13 05:21] LABS: PLATELET COUNT,PLT 207.0 K/uL (130-375); RED BLOOD CELL COUNT 3.62 M/uL (4.14-5.76); WHITE BLOOD CELL COUNT,WBC 17.1 K/uL (3.2-11.0)
[2025-01-13 05:39] LABS: BLOOD UREA NITROGEN,BUN 30.0 mg/dL (7-18); CARBON DIOXIDE,CO2 23.0 mmol/L (21-32); CHLORIDE,CL 107.0 mmol/L (100-108); CREATININE 1.2 mg/dL (0.8-1.3); EST CRCL DRUG DOSING (CG) 67.36 mL/min; ESTIMATED GFR 67.0 mL/min (>60); GLUCOSE RANDOM 104.0 mg/dL (74-106); POTASSIUM,K 3.9 mmol/L (3.6-5.2); SODIUM,NA 140.0 mmol/L (140-148)
[2025-01-14 08:44] LABS: PLATELET COUNT,PLT 255 K/uL (130-375); RED BLOOD CELL COUNT 3.67 M/uL (4.14-5.76); WHITE BLOOD CELL COUNT,WBC 14.8 K/uL (3.2-11.0)
[2025-01-14 08:59] LABS: A/G RATIO 0.5 (1.2-2.2); ALANINE AMINOTRANSFERASE,ALT 35 U/L (12-78); ASPARTATE AMNIOTRANSFERASE,AST 38 U/L (15-37); BILIRUBIN TOTAL 0.2 mg/dL (0.2-1.0); BLOOD UREA NITROGEN,BUN 25 mg/dL (7-18); CARBON DIOXIDE,CO2 26 mmol/L (21-32); CHLORIDE,CL 107 mmol/L (100-108); CREATININE 1.0 mg/dL (0.8-1.3); EST CRCL DRUG DOSING (CG) 80.83 mL/min; ESTIMATED GFR 84 mL/min (>60); GLUCOSE RANDOM 133 mg/dL (74-106); POTASSIUM,K 3.4 mmol/L (3.6-5.2); PROTEIN TOTAL,TP 6.1 g/dL (6.4-8.2); SODIUM,NA 141 mmol/L (140-148)
[2025-01-14 09:04] LABS: BAND ABSOLUTE MAN 0.59 K/uL; BAND PERCENT MAN 4 % (5-11); EOSINOPHILS ABSOLUTE MAN 0.30 K/uL (0.00-0.40); EOSINOPHILS PERCENT MAN 2 % (2-4); LYMPHOCYTES ABSOLUTE MAN 1.92 K/uL (0.8-3.3); LYMPHOCYTES PERCENT MAN 13 % (24-44); MONOCYTES ABSOLUTE MAN 0.44 K/uL (0.20-0.90); MONOCYTES PERCENT MAN 3 % (2-6); NEUTROPHILS ABSOLUTE MAN 11.54 K/uL (1.0-7.6); SEG NEUTROPHILS PERCENT MAN 78 % (36-66)
[2025-01-15 11:58] VITALS: BP 147/73; PULSE 82
[2025-01-16 00:46] LABS: ANTI-NUCLEAR AB ANA,IGG ELISA Detected (None Detected)
[2025-01-16 02:17] LABS: RHEUMATOID FACTOR 12 IU/mL (0-14)
[2025-01-16 21:44] LABS: ANAPLASMA PHAGOCYTOPHILUM PCR Not Detected; BABESIA MICROTI BY PCR Not Detected; EHRLICHIA CHAFFEENSIS BY PCR Not Detected; EHRLICHIA EWINGII/CANIS BY PCR Not Detected; EHRLICHIA MURIS-LIKE BY PCR Not Detected
[2025-01-19 10:54] LABS: ANTINUCLEAR AB (ANA),HEP-2,IGG Detected (<1:80); CYTOPLASM PATTERN Speckled; CYTOPLASMIC TITER 1:80
[2025-01-20 00:38] LABS: DOUBLE-STRANDED DNA IGG ELISA 33 IU (0-24)
[2025-01-20 10:50] LABS: SMITH/RNP (ENA) AB, IGG 16 Units (0-19)
[2025-01-21 13:38] LABS: JO-1 HISTIDYL-TRNA SYNTHET,IGG 2 AU/mL (0-40); SCLERODERMA (SCL-70) AB,IGG 1 AU/mL (0-40); SMITH (ENA) ANTIBODY, IGG 1 AU/mL (0-40); SSA-52 (RO52) (ENA) AB, IGG 8 AU/mL (0-40); SSA-60 (RO60) (ENA) AB, IGG 0 AU/mL (0-40); SSB (LA) (ENA) ANTIBODY, IGG 1 AU/mL (0-40)
== END 2025-01-15 13:20 | disposition home or self-care (01) | DRG 720 ==
LOC: JP.ED 16:11 → JP.ICU 19:10 → JP.MS 19:45
PROVIDERS: ADMIT Registered Nurse; ATTEND Student in an Organized Health Care Education/Training Program
DX: A41.9 Sepsis, unspecified organism (principal); J18.9 Pneumonia, unspecified organism; N17.9 Acute kidney failure, unspecified; E86.0 Dehydration; E78.00 Pure hypercholesterolemia, unspecified; I10 Essential (primary) hypertension; K21.9 Gastro-esophageal reflux disease without esophagitis; F17.200 Nicotine dependence, unspecified, uncomplicated; G47.33 Obstructive sleep apnea (adult) (pediatric); N20.0 Calculus of kidney; M19.90 Unspecified osteoarthritis, unspecified site; E61.1 Iron deficiency; Z85.828 Personal history of other malignant neoplasm of skin; Z98.49 Cataract extraction status, unspecified eye; Z90.49 Acquired absence of other specified parts of digestive tract; Z88.8 Allergy status to other drugs, medicaments and biological substances; Z79.82 Long term (current) use of aspirin; Z86.73 Personal history of transient ischemic attack (TIA), and cerebral infarction without residual deficits; Z79.899 Other long term (current) drug therapy; Z98.890 Other specified postprocedural states; Z98.84 Bariatric surgery status
CPT/HCPCS: 36415; 71045; 71045-26; 80048; 80053; 81001; 83605; 84484; 85025; 85027; 85651; 86038; 86039; 86140; 86225; 86235; 86431; 87040; 87184; 87468; 87469; 87484; 87637; 87798; 94640; 94667; 96361; 96374; 99223; 99232; 99238; 99284; 99285-25; A9270-GY; J0696; J3010; J7030; J7512